=== PATIENT | female | born 1950 | race Caucasian/White ===

== ENCOUNTER 2022-03-27 13:38 | Outpatient (CLI) | payer MEDICARE, SELFPAY ==
--- OUTSIDE RECORDS SUMMARY | 2021-12-30 09:36 | XMS_ITS | Continuity of Care Document ---
:1950 Author Care Team Providers Name Role Phone MD Astrid [place] Attending Physician MD Astrid [place] Primary Care Physician Health Concerns Concerns Review problems and other documentation throughout for Health Concerns. Dictation done with voice recognition, a nd as a result, wrong word or [id number] substitution may have occ urred. Please consider this when interpreting information in this chart. 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, 2 kids, dog Portillo Additional Data Assigned Sex Female Problems Active Problems Medical Problem Onset Date Status Ocular migraine Active Depression Active Osteoporosis July 29, 2019 Active Recurrent cold sores Active Dyslipidemia Active Diverticulitis 2020 Resolved Pancreatic cyst Active BPV (benign positional vertigo) Active Essential tremor Active History of right knee joint August 14, 2017 Active replacement Hx of bilateral cataract 2018 Active extraction hx endoscopic ultrasound February, Active Hx of colonoscopy February 28, 2021 Active Medications Medication Status Dose Units Route Directions Qty Days Start End Ins tructions Date Date Alendronate Active 70 MG PO Every 7 18 December Sodium Days 14, (Fosamax) 70 2021 Mg TAB 12:27p m Cholecalcifero Active 1000 UNIT OR Twice A Day l (Vitamin D3) 1,000 Unit CAP Escitalopram Active 10 MG PO Daily November Oxalate , (Lexapro) 10 2021 Mg TAB 1:28pm Simvastatin Active 40 MG PO Bedtime November 29, 2021 1:29pm Sumatriptan Active 50 MG PO As Needed 9 ONE TAB AT Succinate ONSET OF (Imitrex) 50 HEADACH E, MAY Mg TAB REPEAT Q2H PRN, MAX 200 MG/24 HRS Valacyclovir Active 1 GRAMS PO Daily as 30 Hcl (Valtrex) needed 1 Gm TAB Escitalopram Discontin 15 MG PO Daily October Pat ient to Oxalate ued , take 3 tabs 2021 2021 by mouth 1:28pm 1:28pm daily Escitalopram Discontin 15 MG PO Daily October Oxalate ued , 2021 2:26pm 1:28pm Escitalopram Discontin 15 MG PO Daily October Oxalate ued , 2021 10:45a 2:26pm m Escitalopram Discontin 15 MG PO Daily October Oxalate ued 2021 10:45a m Simvastatin Discontin 40 MG PO Bedtime October ued , 2021 1:28pm 1:29pm Simvastatin Discontin 20 MG PO Bedtime October ued , 2021 2:26pm 1:28pm Simvastatin Discontin 20 MG PO Bedtime October ued , 2021 10:45a 2:26pm m Simvastatin Discontin 20 MG PO Bedtime 05 November ued 2021 10:45a m Immunizations Immunization Event Date Not Given Dose Ict Business Development Manager Lot Vac cine Reason Number Number Informatio n Statement (VIS) Deta il COVID-19 Moderna November 252021 COVID-19 Pfizer July 302020 COVID-19 Pfizer August 102020 COVID-19 Pfizer March 112020 Herpes Zoster August 172010 Influenza May 092020 Prevnar Adult April 232017 Pneumovax Adult September 222016 Shingrix April 092019 Shingrix June 092019 Tdap September 14 (adolescent/adul 2020 t) Procedures Procedure Date Performed Status Future Lab Clinic November 29, 2021 completed DXA BONE DENSITY AXIAL December 14, 2021 completed Bone densitometry December 14, 2021 completed Relevant Diagnostic Tests and/or Laboratory Data Diagnostic Imaging Reports Report Dictated Date/Time Dictated By Status December 14, 2021 2:19pm [place] [address] ~DEPARTMENT OF DI AGNOSTIC IMAGING~ Patient: TANISHA BELCHER MR #: [id number] : 1950 Age: 71 Sex: F Ordering MD: Demetria [place] Rm/Bed: Loc: RAD Report #: [id number] Si gned DATE: 12/14/2021 Technique: DXA Bone Densitometry perform ed on [employer] System.?? *Comparison exams done prior to 12/2019 w ere performed on different unit, [employer]. Indication:??postmenopausal; screening f or osteoporosis; ? Clinical Information Provided by Patient : Has used the following medications: Vitamin D, Calcium Patient maximum height was 65 Menopause Age 55 Drinks caffeinated beverages ?? Onset of menses at age 12 Number of children 2 ? Bone Density:??Exam date 12/14/2021 Region BMD (g/cm2) T-score Z-score Classification AP Spine(L1-L4) 1.019 -0.3 ??2.1 Normal Femoral Neck(Left) 0.559 -2.6 -0.6 Osteoporosis Total Hip(Left) 0.797 -1.2 ??0.5 Osteopenia Femoral Neck(Right) 0.545 -2.7 -0.7 Osteoporosis Total Hip(Right) 0.723 -1.8 -0.1 Osteopenia Femoral Neck Mean 0.552 -2.7 -0.7 Osteoporosis Total Hip Mean 0.760 -1.5 0.2 Osteopenia World Health Organization criteria for B MD impression classify patients as Normal (T-score at or above -1.0), Osteo penia (T-score between -1.0 and -2.5), or Osteoporosis (T-score at or below -2. 5). ? 10-year Fracture Risk: FRAX not reported because:?? Some T-scor e for Spine Total or Hip Total or Femoral Neck at or below -2.5 ? Impression:??The patient has osteoporosi s, based on the Right Femoral Neck T- score. ?? Discussion:??INCREASED RISK OF FRACTURE. BONE DENSITY IS UNDESIRABLY LOW AT ONE OR MORE SKELETAL SITES, CONSISTENT WITH POSTMENOPAUSAL OSTEOPOROSIS. This patient's lowest T-score meets the World Health Organization's (WHO) criteria for osteoporosis at one or more sites (T-score -2.5 or below).?? In untreated patients, the risk of osteo porotic fracture increases approximately two-fold for each 1.0 SD decrease in T-s core.?? Low bone density is not the only risk factor for fracture; also consider factors such as patient's age, frailty or poor health, risk of falling, risk of injury, previous osteoporotic fracture, family history of osteoporosis, cigarett e smoking, low body weight, etc.?? Not everyone with low bone mineral densi ty has osteoporosis; osteomalacia and other metabolic bone disorders should al so be considered. Patients who have o steoporosis should be evaluated for spec [facility] diseases and conditions (secondary causes) that may cause or contribute to bone loss.?? The [place] Association of Clinical End ocrinologists (AACE) and National Osteoporosis Foundation (NOF) recommend pharmacologic intervention for all postmenopausal women whose T-score is in this range. The patient should follow a healthful lifestyle (good nutrition with adequate calcium and vitamin D, and appropriate weight-bearing exercise). ?? Follow-Up:??Consider a repeat BMD and Ve rtebral Fracture Assessment (VFA) exam in 2 years or sooner if medically necessary , to reassess this patient's status. ?? Reported by:??Ari Farias MD on 12/14 2:19:00 PM. <<Signatur e on File>> Dictated By: ARI FARAIS MD Signed By: ARI FARIAS MD Vital Signs Vital Reading Result Reference Range Collection Date/ Time Height 65.500 [in_i] November 29, 2021 1 :05pm Height 166.37 cm November 29, 2021 1 :05pm Weight 147.00 [lb_av] November 29, 2021 1 :05pm Weight 66.801105 kg November 29, 2021 1 :05pm Body Temperature 98.5 [degF] November 29, 2021 1:05pm Body Temperature 36.94 Tracy November 29, 2021 1:05pm BP Systolic 124 mm[Hg] November 29, 2021 1 :05pm BP Diastolic 62 mm[Hg] November 29, 2021 1 :05pm Heart Rate 56 /min November 29, 2021 1 :05pm Respiratory rate 18 /min November 29, 2021 1:05pm Body surface area 1.75 m2 November 29, 2021 1:05pm BMI (Body Mass Index) 24.2 kg/m2 November 29, 2021 1:05pm Insurance Providers Guarantor Tanisha Belcher Address [address] [address] Contact Info. Home Phone: Payer Policy Id Coverage Id Subscriber's Subscriber Id Effective E xpiration Name Date Date [facility] [id number] Tanisha Belcher July Medicare L 2021 Complete Encounters Encounter Location(s) Arrival/Admit Date Discharge/Depart Date Provider(s) Registered [place] [facility] 14[facility] Demetria Le MD Registered [facility] November 29, 2021 [facility] 1:00pm Demetria Le MD Office [facility] [place] [facility] 29[facility] Demetria Le MD Recent Diagnosis Onset Date Encounter for Medicare annual wellness exam Essential tremor BPV (benign positional vertigo) Osteoporosis Dyslipidemia Depression Ocular migraine Well woman exam without gynecological exam Screening for breast cancer Recurrent cold sores Pancreatic cyst Assessments 1. Well-woman exam without pelvic exam due for mammogram which was ordered up-to-date on colonoscopy up-to-date on vaccinations2. Osteoporosis never been on medication we will do DEXA scan continue with 1200 mg of calcium and vitamin- D daily as well as weight-bearing exercise which she does in the former gardening and walking3. Depression well controlled we did decrease Lexapro to 10 mg daily I did renew this for 1 year follow-up in 1 year4. Pancreatic cyst, pair records patient needs gastroenterology follow-up and imaging once a year I have placed a referral to [facility] which she does prefer5. Ocular migraines infrequent use of Imitrex does not need refills6. Dyslipidemia well controlled did renew simvastatin for 1 year7. Recurrent cold sores uses Valtrex as needed does not need a refill8. Benign positional vertigo uses Tramaine maneuver as needed this is a longstanding occasional problem9. Essential tremors, was unable to tolerate medications, so on no medications chronic problem Medicare wellness visit done please see copy no sign of depression excessive alcohol use or cognitive decline do recommend continue current healthy lifestyle we will see her back for a physical and follow-up in 1 year earlier if any concerns. Pre vi sit labs for next year placed Plan of Treatment Instructions from visit on: 11/29/21 Please follow the provider's instructions as discussed during your visit. Instructions from visit on: 11/29/21 Please follow the providers instructions as discussed during your visit and follow preventative care plan. Future Tests Future scheduled test information is unavailable Pending Tests Pending diagnostic test information is unavailable Future Visits Future appointment information is unavailable Referrals to Other Providers Referral information is unavailable Future Procedures Procedure Name Scheduled Date BART Ramirezat Mammo Scrn Future Medications Future medication information is unavailable Patient Instructions Patient instructions are unavailable Goals Ambulatory Goals Reach or maintain optimal well being.
--- NOTE | 2022-03-27 13:40 | CRLHL7_ITS ---
For Patients: As a result of the Century Cures Act, medical imaging exams and procedure reports are released immediately into your electronic medical record. You may view this report before your referring provider. If you have questions, please contact your health care provider. BILATERAL SCREENING MAMMOGRAM WITH COMPUTER-AIDED DETECTION AND TOMOSYNTHESIS TECHNIQUE: CC and MLO views were obtained. These mammographic images have been obtained using full-field digital technique. These mammographic images were interpreted with the benefit of computer-aided detection. Breast Tomosynthesis was used in this interpretation. COMPARISON FILM: Images from [place] (outside). FINDINGS: The breasts are heterogeneously dense, which may obscure small masses IMPRESSION: There is no radiographic evidence for malignancy. ASSESSMENT: BI-RADS Category 1: Negative RECOMMENDATION: Routine screening mammogram in 1 year. A lay language report of this examination will be provided to the patient. Db Joyce M.D. Diagnostic Radiologist [email or web address] FRAN/Dictated by: Db Joyce MD @ 04/04/2022 8:58:00 AM (Electronically Signed)
== END 2022-03-27 13:39 | disposition home or self-care (01) ==
LOC: MAMMO 13:40
PROVIDERS: Visit Provider Family Medicine
DX: Z12.31 Encounter for screening mammogram for malignant neoplasm of breast (principal); R92.2 Inconclusive mammogram
CPT/HCPCS: 77063; 77067

== ENCOUNTER 2023-02-07 16:00 | Outpatient (RCR) | payer OTHER, SELFPAY ==
--- NOTE | 2023-01-05 09:40 | PT.OPEX ---
Please review and sign the attached physical therapy evaluation completed on 01/05/23. Thank you. PT [facility] Out[facility] Eval PT [facility] Outpatient Eval Start: 01/05/23 07:47 Freq: Status: Active Protocol: Document 01/05/23 07:48 TLQ (Rec: 01/05/23 09:34 TLQ [id number]) E-signed By Tiffany Araya DPT Physical Therapy Outpatient Evaluation Insurance Information Recert Due Date 04/05/23 Insurance Name Medicare B Insurance Information/Comments [employer] Medical Diagnosis Pain in left hip (M25.552) Treating Diagnosis Pain in left hip (M25.552) Muscle weakness (M62.81) Referring MD Demetria [place] MD Subjective Subjective Has been having hip pain on her left side on/off over the past year. Likes to garden and has noticed difficulty getting on/off the ground. Pain also worsens when she is carrying heavy objects, especially if greater than 20 lbs. Has a difficult time squatting. When her hip pain is present, notices it is worst when sitting or lying down. Finds some relief with Advil. Had a knee replacement on the right 5 years ago, also has a bunion on her right foot, both are stiff. Would like to work on strength and balance in physical therapy. Would like to eventually start going to [address] [place] [address]. PMHx: Depression, Bronchospasm , Osteoporosis, R TKA 2018 Pain Comments 0/10 at best 3-4/10 at worst Current Work Status Retired Preferred Name Tanisha Precautions Therapy Limitations/Systems Review Not Limited Objective Strength Core strength: 4- flexion, 4+ extension Lower extremity strength: Hip: flexion L 4, R 4+ extension L 4-, R 4+ abduction L 4, R 4+ adduction 4 B internal rotation L 4, R 4+ external rotation L 3+, R 4- Knee: flexion L 4-, R 4 extension 4+ B Ankle/foot: dorsiflexion 4+ B plantarflexion L 16 SLHR, R 25 SLHR Other/Pertinent Objective Hip ROM: WFL bilaterally, mild IR restriction on L Knee ROM: L 0-140 degrees, R 0 -124 degrees Joint mobility: mild hypomobility with posterior glide of L hip TTP: L piriformis Gait: mild Trendelenburg bilaterally 5xSTS 11 seconds with arms crossed, fair eccentric control Tandem stance: 30 seconds bilaterally SLS: L 29 seconds, R 16 seconds Special tests: VIVEK (-) LE distraction (-) no change in symptoms Supine to sit test (-) Assessment Assessment/Impression Patient is a 72 year old female who presents to physical therapy with primary complaint of intermittent left pain. Her primary goal for physical therapy is to improve her strength and balance. Over the past year she has had difficulty with transitions from sit to stand and from getting off the ground after gardening. Core and hip weakness present during today' s examination with manual muscle testing, lower extremity weakness more prevalent in the LLE. No major balance concerns at this time based on ability to maintain tandem stance for 30 seconds without LOB, expect sense of stability will improve as hip strength improves. In addition to her hip pain the patient also notes some stiffness in her right knee and right first ray, hallux valgus deformity present in first ray on the right, history of right TKA in 2018 but no ROM deficits noted during today's examination. Based on examination findings she expected to benefit from skilled interventions of manual therapy, therapeutic exercise, therapeutic activity , and neuromuscular re- education in order to meet her goals as outlined below. Primary Functional Limitations left hip pain, muscle weakness , transitions from floor, transitions to standing, squatting Plan of Care Rehabilitation Potential Good Physical Therapy Goals In 6-8 visits: - Patient will demonstrate floor to stand transition through half kneeling without external support for improved mobility needed while gardening. - Patient will demonstrate safe body mechanics while carrying 10# object to decrease risk of injury during lifting tasks. - Gross left hip strength will improve to 4+/5 for improved stability during stair navigation. - Patient will complete 5 squats over 2 consecutive visits without provocation of symptoms for improved functional strength. - Patient will adhere to HEP to continue strength training IND. Treatment Plan/Direct Interventions Gait Training,Manual Therapy, Neuromuscular Re-ed,Self-Care/ Home Management,Therapeutic Activities,Therapeutic Exercises Frequency/Duration 1x/week for 6-8 weeks Patient Will Be Discharged From Therapy Completion of LTG(s),Skills Plateau,Independent w/HEP, Independently Progressing Evaluation Billing Complexity Low Certification Information Initial Certification Date 01/05/23 Ending Certification Date 04/05/23 Provider Signature Shows Agreement With POC & Medical Necessity Physician Signature & Date Requested Please Sign/Date Here Physician Comment/Change : Physician NPI Number #
== END 2023-05-02 09:18 | disposition home or self-care (01) ==
PROVIDERS: PCP Family Medicine; Visit Provider Family Medicine
DX: M25.552 Pain in left hip (principal); M62.81 Muscle weakness (generalized); Z51.89 Encounter for other specified aftercare
CPT/HCPCS: 97110; 97140; 97161

== ENCOUNTER 2023-02-12 09:08 | Outpatient (CLI) | payer OTHER, SELFPAY ==
--- NOTE | 2023-02-12 09:15 | CRLHL7_ITS ---
For Patients: As a result of the Century Cures Act, medical imaging exams and procedure reports are released immediately into your electronic medical record. You may view this report before your referring provider. If you have questions, please contact your health care provider. INDICATION: Pancreatic cyst; followup. Comparison: None. TECHNIQUE: MRI of the abdomen without and with intravenous contrast; precontrast T1 and T2 weighted imaging; T2 haste imaging; diffusion weighted imaging; in and out of phase imaging; postcontrast imaging; 20 cc of Dotarem contrast was injected. FINDINGS: Extrahepatic common bile duct measures 9.1 mm in diameter without any evidence of choledocholithiasis. Gallbladder is unremarkable. No evidence of intrahepatic biliary duct dilatation. Dilated pancreatic duct measuring 7.4 mm in diameter. A 7 mm cystic lesion tail of the pancreas. 5 mm cystic lesion in the tail of the pancreas. 9 mm cystic lesion in the uncinate process of the pancreas. No focal hepatic or splenic pathology. No peripancreatic inflammatory changes. No adrenal pathology. Kidneys are unremarkable. IMPRESSION: 1. Multiple cystic lesions in the pancreas; rule out side branch IPMN. 2. Dilated pancreatic duct measuring 7.4 mm in diameter; rule out main duct IPMN. 3. Common bile duct measures 9 mm in diameter without any choledocholithiasis. 4. No other abnormalities are identified. 5. Followup MRCP and MRI of the abdomen in 12 months duration suggested and comparison with any available previous pancreatic imaging suggested. Dictated by Bernie Qureshi MD @ 02/20/2023 11:20:18 AM (Electronically Signed)
== END 2023-02-12 09:09 | disposition home or self-care (01) ==
LOC: MRI 09:11
PROVIDERS: PCP Family Medicine; Visit Provider Internal Medicine Gastroenterology
DX: K86.2 Cyst of pancreas (principal)
CPT/HCPCS: 74183; A9575

== ENCOUNTER 2023-02-14 10:10 | Outpatient (CLI) | payer OTHER, SELFPAY | END 2023-02-14 10:11 | disposition home or self-care (01) | LOC: AMB 02-15 08:59 | PROVIDERS: PCP Family Medicine; Visit Provider Family Medicine | DX: I10 Essential (primary) hypertension (principal) ==

== ENCOUNTER 2023-02-14 10:10 | Outpatient (CLI) | payer OTHER, SELFPAY | END 2023-02-14 10:11 | disposition home or self-care (01) | LOC: AMB 02-19 09:11 | PROVIDERS: PCP Family Medicine; Visit Provider Family Medicine | DX: R51.9 Headache, unspecified (principal) | CPT/HCPCS: A0425; A0427 ==

== ENCOUNTER 2023-02-14 10:41 | Emergency (ER) | payer OTHER, SELFPAY ==
[2023-02-14] VITALS (16 sets, daily range): BP systolic 167–198; BP diastolic 85–104; PULSE 63–80; RESP 16; TEMP 36.9; O2SAT 94–99; BMI 24.6
--- NOTE | 2023-02-14 | CRLHL7_ITS ---
For Patients: As a result of the Century Cures Act, medical imaging exams and procedure reports are released immediately into your electronic medical record. You may view this report before your referring provider. If you have questions, please contact your health care provider. Indication: Possible stroke Technique: Volumetric multidetector CT images of the head were obtained without the administration of low osmolar intravenous contrast. Comparison: None available Findings: There is no intra-axial or extra-axial fluid collection. There is no mass effect or midline shift. There is age-related cortical atrophy with mild sulcal widening and ex vacuo dilatation of the lateral ventricles. There are chronic small vessel disease changes in the subcortical and periventricular white matter without lost joshi-white differentiation. The orbits and their contents are grossly within normal limits. The bony calvarium is grossly intact. The paranasal sinuses are clear. The mastoid air cells are well aerated. Impression: 1. Age-related changes of the brain without acute intracranial abnormality. Findings were reported to Dr. Fuentes at 11:02 a.m. February 14, 2023 Please note that all CT scans at this facility use dose modulation, iterative reconstruction, and/or weight-based dosing when appropriate to reduce radiation dose to as low as reasonably achievable. Dictated by Louie Youssef MD @ 02/14/2023 11:09:51 AM (Electronically Signed)
--- NOTE | 2023-02-14 | CRLHL7_ITS ---
For Patients: As a result of the Century Cures Act, medical imaging exams and procedure reports are released immediately into your electronic medical record. You may view this report before your referring provider. If you have questions, please contact your health care provider. DATE: 02/14/2023 CLINICAL HISTORY: Patient with focal neurological deficits. TECHNIQUE: Standard helical CT image acquisition through the intracranial circulation following intravenous administration of contrast material with bolus tracking. 2D and 3D MIP images for post-processing were performed and interpreted on an independent workstation and 3D images were permanently archived. COMPARISON: CT same day. FINDINGS: There is no cerebral aneurysm or large vessel occlusion. The right internal carotid artery is normal. The right middle cerebral artery and its branches are normal. The right anterior cerebral artery and its branches are normal. The left internal carotid artery is normal. The left middle cerebral artery and its branches are normal. The left anterior cerebral artery and its branches are normal. The anterior communicating artery is well visualized and appears normal. The right vertebral artery and PICA are normal. The left vertebral artery and PICA are normal. The left vertebral artery is dominant. The basilar artery is patent and appears normal. The right posterior cerebral artery is normal. The left posterior cerebral artery is normal. The visualized venous structures are patent. IMPRESSION: Normal CT angiogram of the head without intracranial aneurysm or other neurovascular abnormality. Please note that all CT scans at this facility use dose modulation, iterative reconstruction, and/or weight-based dosing when appropriate to reduce radiation dose to as low as reasonably achievable. Dictated by Amadou Merida MD @ 02/14/2023 9:18:01 PM (Electronically Signed)
--- NOTE | 2023-02-14 | CRLHL7_ITS ---
For Patients: As a result of the Century Cures Act, medical imaging exams and procedure reports are released immediately into your electronic medical record. You may view this report before your referring provider. If you have questions, please contact your health care provider. DATE: 02/14/2023 CLINICAL HISTORY: Patient with focal neurological deficits. TECHNIQUE: Standard helical CT image acquisition of the neck up to the skull base after bolus intravenous contrast enhancement. Multiplanar reconstructed images performed on a separate workstation. COMPARISON: CT same day. FINDINGS: The origins of the great vessels from the aortic arch are patent. The origin of the right vertebral artery is patent. The origin of the left vertebral artery is patent. The common carotid arteries are patent. There is no stenosis at the origin of the right internal carotid artery. There is plaque without stenosis at the origin of the left internal carotid artery. The rest of the cervical segments of the internal carotid arteries are patent up to the skull base. The left vertebral artery is dominant. The cervical segments of the vertebral arteries are patent up to the skull base. The visualized intracranial vasculature is unremarkable. The visualized lung apices are unremarkable. The thyroid gland is unremarkable. The soft tissues of the neck are unremarkable. There are degenerative changes in the cervical spine. IMPRESSION: Patent cervical vasculature. Please note that all CT scans at this facility use dose modulation, iterative reconstruction, and/or weight-based dosing when appropriate to reduce radiation dose to as low as reasonably achievable. Dictated by Amadou Merida MD @ 02/14/2023 9:15:48 PM (Electronically Signed)
--- NOTE | 2023-02-14 11:00 | ED.GENADULT ---
HPI - General Adult General Chief complaint: Neuro Symptoms/Altered Deficit Stated complaint: CVA Time Seen by Provider: 02/14/23 10:44 History of Present Illness HPI narrative: Patient is a 72-year-old female has history of ocular migraines and benign positional vertigo, essential tremor, presents with diminished word-finding ability this morning, and some questionable right-sided weakness. This seems to be improved at this time on arrival to the ED. She was brought in by stroke code by EMS. She has no history of AFib, is not on any anticoagulants. She has not had a stroke in the past. She does have ocular migraines as mention and gets some word-finding problems with these, although she does not have a headache now. She was met in the hallway, she had a examination that included normal facial examination, no facial asymmetry, tongue protrudes midline, mouth opens, patient follows commands. Patient has no neck stiffness she has no pronator drift, no weakness in the upper lower extremity. Patient reports that showed she was last well about 9:00 a.m., she was texting with her daughter at that time her daughter is here with her. I consulted Stroke Neurology promptly and Dr. kenney is interviewing the patient now Related Data Home Medications Medication Instructions Recorded Confirmed cholecalciferol (vitamin D3) 50 50 mcg PO QDAY 07/25/22 12/07/22 mcg (2,000 unit) capsule Previous Rx's Medication Instructions Recorded albuterol sulfate 90 mcg/actuation 2 puff inhalation Q6H PRN 11/28/22 aerosol inhaler shortness of breath or wheezing #8.5 grams sumatriptan succinate 50 mg tablet 50 mg PO QDAY PRN migraine 11/28/22 headache #10 tabs escitalopram oxalate 20 mg tablet 20 mg PO QDAY #90 tabs 12/07/22 (Lexapro) simvastatin 40 mg tablet 40 mg PO QHS #90 tabs 12/07/22 valacyclovir 1 gram tablet 2,000 mg (2 x 1 gram) PO QDAY PRN 12/07/22 cold sores #24 tabs Allergies Allergy/AdvReac Type Severity Reaction Status Date / Time Penicillins Allergy Unknown Verified 12/07/22 11:11 Sulfa (Sulfonamide Allergy Unknown Verified 12/07/22 11:11 Antibiotics) Review of Systems Status of ROS: Reports: unobtainable due to medical condition PFSH [facility] Medical History Recurrent herpes labialis ?B00.1 - Herpesviral vesicular dermatitis (ICD-10) Osteoporosis (07/29/19) ?M81.0 - Age-related osteoporosis without current pathological fracture (ICD-10) Ocular migraine ?G43.109 - Migraine with aura, not intractable, without status migrainosus (ICD-10) Dyslipidemia ?E78.5 - Hyperlipidemia, unspecified (ICD-10) Diverticulitis (2020) ?K57.92 - Diverticulitis of intestine, part unspecified, without perforation or abscess without bleeding (ICD-10) Cyst of pancreas ?K86.2 - Cyst of pancreas (ICD-10) Depression ?F32.A - Depression, unspecified (ICD-10) Surgical History History of right knee joint replacement (08/14/17) ?Z96.651 - Presence of right artificial knee joint (ICD-10) History of colonoscopy (02/28/21) ?Z98.890 - Other specified postprocedural states (ICD-10) History of bilateral cataract extraction (2018) ?Z98.41 - Cataract extraction status, right eye (ICD-10) ?Z98.42 - Cataract extraction status, left eye (ICD-10) Family History Mother Breast cancer Depression Father Myocardial infarction Social History Narrative: , retired from [employer], 2 kids, dog Portillo exercise involving walking- 2-3/week, 2M nonsmoker social drinker- 1-2/week Smoking Status: Never smoker How often do you have a drink containing alcohol: monthly or less How often do you have six or more drinks on one occasion: Never AUDIT-C Alcohol total score: 1 Non-prescribed substance use: denies use Little interest or pleasure in doing things: not at all Feeling down, depressed, or hopeless: not at all Exam Narrative: Exam Narrative: Objective: Patient's vital signs show elevated blood pressure, she has no facial asymmetry, she has difficulty finding words and speaking, but she is able to speak single words. She has no obvious facial asymmetry Neck is supple Chest clear heart rhythm regular heart murmur Abdomen benign Extremities without edema neurologic is grossly nonfocal she is able to move her legs arm she has no pronator drift she has good grasp strength bilaterally in her upper extremities she has good normal flexion extension of her feet bilaterally and normal sensation in the periphery. Const: Vital Signs, click to edit/add: Vital Signs - 24 hr 02/14/23 10:48 02/14/23 11:07 02/14/23 11:07 Temperature 98.4 F Pulse Rate 78 Pulse Rate [Left R adial] 75 Pulse Rate [Pulse Oximeter] 80 Respiratory Rate 16 Blood Pressure 193/86 H Blood Pressure [Ri ght Upper Arm] 198/104 H Pulse Oximetry 99 98 [facility] 02/14/23 11:08 02/14/23 11:15 02/14/23 11:16 Temperature Pulse Rate 80 76 75 Pulse Rate [Left R adial] Pulse Rate [Pulse Oximeter] Respiratory Rate Blood Pressure 182/88 H Blood Pressure [Ri ght Upper Arm] Pulse Oximetry 98 97 98 [facility] 02/14/23 11:17 02/14/23 11:30 02/14/23 11:31 Temperature Pulse Rate 75 74 79 Pulse Rate [Left R adial] Pulse Rate [Pulse Oximeter] Respiratory Rate Blood Pressure 178/85 H Blood Pressure [Ri ght Upper Arm] Pulse Oximetry 97 97 98 [facility] 02/14/23 11:45 02/14/23 11:46 02/14/23 12:33 Temperature Pulse Rate 74 75 72 Pulse Rate [Left R adial] Pulse Rate [Pulse Oximeter] Respiratory Rate Blood Pressure 167/85 H Blood Pressure [Ri ght Upper Arm] Pulse Oximetry 96 94 96 [facility] 02/14/23 12:35 02/14/23 12:36 02/14/23 12:45 Temperature Pulse Rate 67 72 66 Pulse Rate [Left R adial] Pulse Rate [Pulse Oximeter] Respiratory Rate Blood Pressure 171/101 H Blood Pressure [Ri ght Upper Arm] Pulse Oximetry 95 96 96 [facility] 02/14/23 12:47 02/14/23 12:48 Temperature Pulse Rate 66 63 Pulse Rate [Left R adial] Pulse Rate [Pulse Oximeter] Respiratory Rate Blood Pressure 172/88 H Blood Pressure [Ri ght Upper Arm] Pulse Oximetry 94 95 Oxygen Delivery Me thod Course Vital Signs Vital signs: Initial Vital Signs Temperature 98.4 F 02/14/23 10:48 Temperature Source Temporal Artery Scan 02/14/23 10:48 Pulse Rate 80 02/14/23 10:48 Respiratory Rate 16 02/14/23 10:48 Blood Pressure 198/104 H 02/14/23 10:48 Blood Pressure Mean 135 H 02/14/23 10:48 Blood Pressure Position Supine 02/14/23 10:48 Pulse Oximetry 99 02/14/23 10:48 Oxygen Delivery Method Room Air 02/14/23 10:48 Vital Signs Temperature 98.4 F 02/14/23 10:48 Pulse Rate 80 02/14/23 10:48 Respiratory Rate 16 02/14/23 10:48 Blood Pressure 198/104 H 02/14/23 10:48 Pulse Oximetry 99 02/14/23 10:48 Oxygen Delivery Method Room Air 02/14/23 10:48 Temperature 98.4 F 02/14/23 10:48 Pulse Rate 63 02/14/23 12:48 Respiratory Rate 16 02/14/23 10:48 Blood Pressure 172/88 H 02/14/23 12:47 Pulse Oximetry 95 02/14/23 12:48 Oxygen Delivery Method Room Air 02/14/23 10:48 Medical Decision Making MDM Narrative Medical decision making narrative: [age] white female with history of mild ocular migraines, BPV and tremor, presents with word-finding inability. No headache present. She has had some word-finding inability with migraine headaches in the past. At this point that she does have a headache in the seems a little different than baseline per her daughter. The patient has improved slightly with some right-sided strength it has returned and seems symmetric. Paramedics thought that she might have been a little weak on the right in the home. She is on no anticoagulants. Her blood pressure is elevated. Dr. Vergara is a consulting with the patient this time via the tele stroke protocol. Her initial CT scan is unremarkable by my read, and her CTA is pending. Dr. Chicas he felt that if her strength continues and her CTs look negative we can do full load Plavix 300 and full dose aspirin. Patient may need admission for telemetry echocardiogram and stroke assessment. Addendum 11:[address] kenney interviewed the patient and felt this is more likely an ocular migraine with aura. She did see some flashing lights although did have a headache, it has lasted longer and been a little bit more aphasia or dysphagia than typical but she does get some of this with a headache. He recommended an aspirin, a MRI scan as soon as possible to rule out stroke, and then disposition planning. Patient will get an MRI without contrast of the head to rule out stroke, and then disposition per Dr. kenney recommendation. addendum 1:00 p.m.: The patient has an MRI that is looked at by Dr. Vergara as unremarkable. He feels this is more related to a migraine. He recommended magnesium and a dose of 406 100 mg as a supplement daily as some people tolerate this and it helps her migraines. The patient declines any migraine treatment at this time she would like to go home. Light activity recommended, fluids, continue home medications. I would avoid Imitrex today but may use at starting tomorrow. Follow-up with Dr. Her Jamison next few days may want to consult with a neurologist regarding her ocular migraines as well. Her labs look reassuring. Lab Data Labs: Lab Results 02/14/23 Range/Units 11:10 WBC 6.40 (4.50-11.00) K/uL RBC 4.78 (4.00-5.20) m/uL Hgb 14.2 (12.0-16.0) gm/dL Hct 42.6 (33.0-51.0) % MCV 89 (80-100) fL MCH 30 (26-34) pg MCHC 33 (32-36) gm/dL RDW Coeff of Carlene 13.2 (11.5-15.5) % Plt Count 221 (140-440) K/uL Neut % (Auto) 50.8 (42.0-72.0) % Lymph % (Auto) 34.7 (20-44) % [place] % (Auto) 7.0 (0.0-11.0) % Eos % (Auto) 6.4 (0.0-7.0) % Baso % (Auto) 0.9 (0.0-3.0) % Neut # (Auto) 3.25 (1.7-7.0) K/uL Lymph # (Auto) 2.22 (0.90-2.90) K/uL [place] # (Auto) 0.40 (0.00-0.90) K/UL Eos # (Auto) 0.41 (0.00-0.50) K/uL Baso # (Auto) 0.06 (0.00-0.30) K/uL Abs Immat Gran (auto) 0.01 (0.00-0.30) K/uL Imm/Tot Granulo (auto) 0.2 % Sodium 133 L (135-149) mmol/L Potassium 3.1 L (3.6-5.1) mmol/L Chloride 101 (96-114) mmol/L Carbon Dioxide 20 (20-32) mmol/L BUN 20 (7-30) mg/dL Creatinine 0.7 (0.5-1.5) mg/dL Estimated Creat Clear 44.41 Estimated GFR 91 ml/min Glucose 115 (60-115) mg/dL Calcium 9.2 (8.4-10.6) mg/dL C-Reactive Protein < 0.5 L (0.5-1.0) mg/dL Critical Care Time Critical Care Time Total Critical Care Time in Minutes: 120 Discharge Plan Discharge Clinical Impression: Benign paroxysmal positional vertigo, Ocular migraine Patient Disposition: Home w/ Parent or Adult Condition: Improved Additional Instructions: Recommend light activity, Dr. kenney recommended a supplemental dose of magnesium daily for ocular migraine. Recommend follow-up with Her work in the next few days. Push fluids, continue home medications. Return as needed. Activity Level: Light activity Discharge Diet: Regular Prescriptions: No Action albuterol sulfate 90 mcg/actuation HFA aerosol inhaler 2 puff inhalation Q6H PRN (Reason: shortness of breath or wheezing) Qty: 8.5 0RF escitalopram oxalate [Lexapro] 20 mg tablet 20 mg PO QDAY Qty: 90 4RF simvastatin 40 mg tablet 40 mg PO QHS Qty: 90 4RF valacyclovir 1 gram tablet 2,000 mg PO QDAY PRN (Reason: cold sores) Qty: 24 0RF Rx Instructions: take 2 tab po immediately, repeat 2 tab po in 12h , use as needed for cold sores cholecalciferol (vitamin D3) 50 mcg (2,000 unit) capsule 50 mcg PO QDAY sumatriptan succinate 50 mg tablet 50 mg PO QDAY PRN (Reason: migraine headache) Qty: 10 0RF Follow Up/Referrals: Demetria Hudson MD [Primary Care Provider] - Stand Alone Forms: Scaffold Info Instructions
--- NOTE | 2023-02-14 11:20 | CRLHL7_ITS ---
For Patients: As a result of the Century Cures Act, medical imaging exams and procedure reports are released immediately into your electronic medical record. You may view this report before your referring provider. If you have questions, please contact your health care provider. INDICATION: Stroke-like symptoms. TECHNIQUE: Brain MRI without contrast. The following sequences were obtained: Sagittal T1 weighted sequence. DWI and ADC mapping sequences. Axial FLAIR and PADMINI T2 weighted sequences. Susceptibility or GRE sequence. COMPARISON: Head CT from 02/14/2023. FINDINGS: No evidence of acute ischemia. No evidence of acute or chronic intracranial blood products. Multiple FLAIR hyperintensities scattered within the supratentorial white matter, typical for microvascular ischemic change. No mass effect or herniation. No hydrocephalus or extra-axial collections. The pituitary gland, parasellar structures and optic chiasm are normal. Posterior fossa is normal. All the major intracranial vascular structures demonstrate normal flow-related signal. The orbital contents are normal. No calvarial or skull base marrow replacing process. No obstructive sinus disease. No extracranial soft tissue findings. IMPRESSION: 1. No acute ischemia or other acute intracranial pathology. 2. Mild chronic microvascular ischemic changes. Dictated by Raul Woods MD @ 02/14/2023 1:10:45 PM (Electronically Signed)
[2023-02-14] MEDS: ASPIRIN 81 MG TAB.CHEW 324 MG PO (11:27)
[2023-02-14 12:07] LABS: Basophils Absolute Auto 0.06 K/uL (0.00-0.30); Basophils Percent Auto 0.9 % (0.0-3.0); Eosinophils Absolute Auto 0.41 K/uL (0.00-0.50); Eosinophils Percent Auto 6.4 % (0.0-7.0); Hematocrit 42.6 % (33.0-51.0); Hemoglobin* 14.2 gm/dL (12.0-16.0); Immature Granulocytes Abs Auto 0.01 K/uL (0.00-0.30); Immature Granulocytes Pct Auto 0.2 %; Lymphocytes Absolute Auto 2.22 K/uL (0.90-2.90); Lymphocytes Percent Auto 34.7 % (20-44); Mean Corpuscular HGB Conc 33 gm/dL (32-36); Mean Corpuscular Hemoglobin 30 pg (26-34); Mean Corpuscular Volume 89 fL (80-100); Neutrophils Absolute Auto 3.25 K/uL (1.7-7.0); Neutrophils Percent Auto 50.8 % (42.0-72.0); Platelet Count* 221 K/uL (140-440); RDW Coefficient of Variation % 13.2 % (11.5-15.5); Red Blood Count 4.78 m/uL (4.00-5.20)
[2023-02-14 12:09] LABS: Chloride* 101 mmol/L (96-114); Potassium* 3.1 mmol/L (3.6-5.1); Sodium* 133 mmol/L (135-149)
[2023-02-14 12:12] LABS: Blood Urea Nitrogen* 20 mg/dL (7-30); Carbon Dioxide* 20 mmol/L (20-32); Creatinine* 0.7 mg/dL (0.5-1.5); Est. Creatinine Clearance* 44.41; Estimated Glomerular Filt Rate 91 ml/min
[2023-02-14 12:13] LABS: Calcium* 9.2 mg/dL (8.4-10.6); Glucose* 115 mg/dL (60-115)
[2023-02-14 12:17] LABS: C Reactive Protein* < 0.5 mg/dL (0.5-1.0)
[2023-02-14 12:19] LABS: Slide Review Reflex No
[2023-02-14] MEDS: POTASSIUM BICARB 25 MEQ EFFERVESCENT TAB PO (12:45)
== END 2023-02-14 13:17 | disposition home or self-care (01) ==
LOC: ED 12:59
PROVIDERS: Emergency Provider Family Medicine; PCP Family Medicine
DX: H81.10 Benign paroxysmal vertigo, unspecified ear (principal); G43.B0 Ophthalmoplegic migraine, not intractable
CPT/HCPCS: 36415; 70450; 70496; 70498; 70551; 80048; 85025; 86140; 93005; 99285; 99291; 99292; A9270; Q9967

== ENCOUNTER 2023-02-23 09:32 | Outpatient (CLI) | payer OTHER, SELFPAY | END 2023-02-23 09:33 | disposition home or self-care (01) | LOC: NFLDREF 09:33 | PROVIDERS: PCP Family Medicine; Visit Provider Family Medicine | DX: E87.6 Hypokalemia (principal) | CPT/HCPCS: 80048 ==

== ENCOUNTER 2023-05-23 12:16 | Outpatient (CLI) | payer OTHER, SELFPAY ==
--- NOTE | 2023-05-23 13:00 | CRLHL7_ITS ---
For Patients: As a result of the Century Cures Act, medical imaging exams and procedure reports are released immediately into your electronic medical record. You may view this report before your referring provider. If you have questions, please contact your health care provider. Indication: LOWER ABD PAIN, MAINLY ON THE LEFT X 1 WEEK. HX OF DIVERTICULITIS Technique: CT Abdomen/Pelvis 69CC ISOVUE 370 Please note that all CT scans at this facility use dose modulation, iterative reconstruction, and/or weight-based dosing when appropriate to reduce radiation dose to as low as reasonably achievable. Comparison: MRI 02/12/2023 Findings: Mild atelectasis noted within both lung bases. No pleural effusion. No free intraperitoneal air. No intrahepatic mass. No splenic lesion. Vascular calcifications. Adrenal glands normal. No solid renal mass or stone. No hydronephrosis. No gallbladder wall thickening. Possible faint densities within the dependent gallbladder. Dilated common bile duct and pancreatic duct again noted. Segmental inflammatory changes involving sigmoid colon extending over a length of 5 cm. Intramural abscess formation noted measuring 1.3 cm. Adjacent inflammatory changes in the pelvic fat. No disseminated free air. No bowel obstruction. Bladder normal. Uterine fibroids. Normal ovaries. No suspicious lymph nodes. No hernia. Degenerative changes lumbar spine. No fracture. Impression: Similar appearance of the pancreas with small cystic lesions present and dilated common bile duct/pancreatic duct. MRI/MRCP follow-up in February 2024 recommended, as before. Moderately severe acute sigmoid diverticulitis with intramural abscess formation which is not amenable to percutaneous drainage. Please note that all CT scans at this facility use dose modulation, iterative reconstruction, and/or weight-based dosing when appropriate to reduce radiation dose to as low as reasonably achievable. Dictated by Db Joyce MD @ 05/24/2023 10:17:46 AM (Electronically Signed)
[2023-05-23 13:04] LABS: Creatinine* 0.8 mg/dL (0.5-1.5); Estimated Glomerular Filt Rate 77 ml/min
== END 2023-05-23 12:17 | disposition home or self-care (01) ==
LOC: CT 12:18
PROVIDERS: PCP Family Medicine; Visit Provider Internal Medicine Gastroenterology
DX: R10.30 Lower abdominal pain, unspecified (principal); K86.2 Cyst of pancreas; K57.32 Diverticulitis of large intestine without perforation or abscess without bleeding
CPT/HCPCS: 36415; 74177; 82565; 85025; Q9967

== ENCOUNTER 2023-06-08 15:26 | Outpatient (CLI) | payer OTHER, SELFPAY ==
--- NOTE | 2023-06-08 16:00 | CRLHL7_ITS ---
For Patients: As a result of the Century Cures Act, medical imaging exams and procedure reports are released immediately into your electronic medical record. You may view this report before your referring provider. If you have questions, please contact your health care provider. INDICATION: abdominal pain TECHNIQUE: CT abdomen and pelvis acquired with 71 cc Isovue 370 IV contrast. COMPARISON: Dating back to February 2023. FINDINGS: Lower chest: Subsegmental atelectasis. ABDOMEN: Liver: Normal enhancement. Subcentimeter hypodensities are too small to characterize. Gallbladder and biliary: Normal gallbladder without radiopaque stone. Stable prominence/dilatation of the common bile duct. Spleen: Normal size and enhancement. Pancreas: Normal enhancement without peripancreatic inflammatory changes or ductal dilatation. Adrenal glands: Normal adrenal glands. Kidneys and ureters: 1 millimeter nonobstructing left-sided renal stone. No hydroureteronephrosis. GI tract: Small hiatal hernia. Normal caliber small and large bowel loops. Normal appendix. Colonic diverticulosis without diverticulitis. Vascular structures: Normal caliber aorta with atherosclerotic calcifications. Lymph nodes: No lymphadenopathy in the abdomen or pelvis by size criteria. Peritoneum: No free air, free fluid, or focal drainable fluid collection. PELVIS: Genitourinary system: Urinary bladder is relatively decompressed. Age-appropriate uterus with likely uterine fibroid. SKELETAL STRUCTURES AND SOFT TISSUES: Multilevel lumbar spondylosis with disc bulges causing at least effacement of the anterior thecal sac. IMPRESSION: 1. No discrete acute abdominal or pelvic process. No obstruction. No hydroureteronephrosis. Colonic diverticulosis resolved previously visualized diverticulitis. Normal appendix. 2. Likely uterine fibroid. 3. No imaging findings to explain the reported clinical symptoms. 4. 1 millimeter nonobstructing left-sided renal stone. Please note that all CT scans at this facility use dose modulation, iterative reconstruction, and/or weight-based dosing when appropriate to reduce radiation dose to as low as reasonably achievable. Dictated by Db Rowe MD @ 06/08/2023 5:09:06 PM (Electronically Signed)
== END 2023-06-08 15:27 | disposition home or self-care (01) ==
PROVIDERS: PCP Family Medicine; Visit Provider Internal Medicine Gastroenterology
DX: R10.9 Unspecified abdominal pain (principal); N20.0 Calculus of kidney
CPT/HCPCS: 74177; Q9967

== ENCOUNTER 2023-06-12 13:53 | Outpatient (REF) | payer OTHER, SELFPAY ==
[2023-06-12 14:30] LABS: Basophils Absolute Auto 0.06 K/uL (0.00-0.30); Basophils Percent Auto 1.2 % (0.0-3.0); Eosinophils Percent Auto 7.4 % (0.0-7.0); Hematocrit 41.7 % (33.0-51.0); Hemoglobin* 13.3 gm/dL (12.0-16.0); Lymphocytes Absolute Auto 1.47 K/uL (0.90-2.90); Lymphocytes Percent Auto 29.3 % (20-44); Mean Corpuscular HGB Conc 32 gm/dL (32-36); Mean Corpuscular Hemoglobin 30 pg (26-34); Mean Corpuscular Volume 93 fL (80-100); Monocytes Percent Auto 7.8 % (0.0-11.0); Neutrophils Absolute Auto 2.72 K/uL (1.7-7.0); Neutrophils Percent Auto 54.3 % (42.0-72.0); Platelet Count* 242 K/uL (140-440); RDW Coefficient of Variation % 14.5 % (11.5-15.5); Red Blood Count 4.51 m/uL (4.00-5.20); White Blood Count* 5.01 K/uL (4.50-11.00)
[2023-06-12 14:33] LABS: Slide Review Reflex No
== END 2023-06-12 13:54 | disposition home or self-care (01) ==
LOC: NPINS 13:53
PROVIDERS: PCP Family Medicine; Visit Provider Internal Medicine Gastroenterology
DX: R10.9 Unspecified abdominal pain (principal)
CPT/HCPCS: 85025

== ENCOUNTER 2023-09-04 14:41 | Outpatient (CLI) | payer OTHER, SELFPAY ==
--- NOTE | 2023-09-04 15:00 | MM_ITS ---
Patient: SHERRELL BELCHER Facility:?[facility] Patient ID:?[id number] Site Patient ID:?[id number]. Site :?[id number] Study:?XRay-Breast 3D W/CAD-09/04/2023 3:01:52 PM Ordering Physician:Demetria Peterson Final Report: BILATERAL SCREENING MAMMOGRAM WITH COMPUTER-AIDED DETECTION AND TOMOSYNTHESIS TECHNIQUE: CC and MLO views were obtained. These mammographic images have been obtained using full-field digital technique. These mammographic images were interpreted with the benefit of computer-aided detection. Breast Tomosynthesis was used in this interpretation. COMPARISON FILM: 03/27/22, 10/07/20. FINDINGS: The breasts are heterogeneously dense, which may obscure small masses. IMPRESSION: There is no radiographic evidence for malignancy. ASSESSMENT: BI-RADS Category 2: Benign RECOMMENDATION: Routine screening mammogram in 1 year. A lay language report of this examination will be provided to the patient. Db Joyce M.D. Diagnostic Radiologist [email or web address] PANKAJ/sp R& Transcribed: 2:07 p.m. SP/Dictated by: Db Joyce MD @ 09/05/2023 10:52:00 AM Signed by:?Db Joyce MD @09/05/2023 2:26:32 PM (Electronic Signature)
== END 2023-09-04 14:42 | disposition home or self-care (01) ==
LOC: MAMMO 14:42
PROVIDERS: PCP Family Medicine; Visit Provider Family Medicine
DX: Z12.31 Encounter for screening mammogram for malignant neoplasm of breast (principal); R92.2 Inconclusive mammogram
CPT/HCPCS: 77063; 77067

== ENCOUNTER 2023-12-14 10:26 | Outpatient (CLI) | payer OTHER, SELFPAY ==
--- OUTSIDE RECORDS SUMMARY | 2024-01-01 11:48 | XMS_ITS | Encounter Summary ---
Author Organization [facility] Address [address] [place] [id number] Care Team Providers Care Medical Technologist Name Role Phone Unavailable Primary Care Provider Unavailabl e Encounter Details Date Type Department Care Team (Latest Contact Info) Description 11/08/2023 Orders Only Division of Gastroenterology in [place], [place] [address] [place] [address] Jesus Agustin M.B.B.S. [address] [place] [address] Cyst Pancreas (Primary Dx) Social History Tobacco Use Types Packs/Day Years Used Date Smoking Tobacco: Never Passive Smoke Exposure: Yes Smokeless Tobacco: Never Comments:My father smoked wh en i was growin up Alcohol Use Standard Drinks/Week Comments Yes 1 (1 standard drink = 0.6 oz pur e alcohol) [facility] Utilities Answer Date Recorded In the past 12 months has e [employer], gas, oil, or water foodjunky threatened to shut off services in your home? No 09/19/2023 Exercise Vital Sign Answer Date Recorde d On average, how many days pe r week do you engage in moderate to strenuous exercise (like a brisk walk)? 4 days 09/19/2023 On average, how many minutes do you engage in exercise at this level? 30 min 09/19/2023 Hunger Vital Sign Answer Date Recorded Within the past 12 months, y ou worried that your food would run out before you got the money to buy more. Never true 09/19/19 24 Within the past 12 months, t he food you bought just didn't last and you didn't have money to get more. Never true 09/19/2023 PRAPARE - Transportation Answer Date Re corded In the past 12 months, has l ack of transportation kept you from medical appointments or from getting medications? No 09/06 In the past 12 months, has l ack of transportation kept you from meetings, work, or from getting things needed for daily living? No 09/19/2023 Nutrition Answer Date Recorded Nutrition: EVOO Fat Source Unknown 09/18 On average, how many serving s of fruits and vegetables do you eat per day (serving size is equal to 1 cup or approximately the size of a tennis ball)? 5 or more 09/19/2023 Dental Answer Date Recorded Dental: Regular Dentist No 09/19/19 Employment Answer Date Recorded Employment status Retired 09/19/2023 Housing Stability Answer Date Recorded What is your living situation today? I have a [facility] place to live 09/19/2023 Sex and Gender Information Value Date Recorded Sex Assigned at Female 09/19/2023 8:25 PM CDT Gender Identity Female 09/19/2023 8:25 PM CDT Sexual Orientation Straight 09/19/2023 8: 25 PM CDT documented as of this encounter Plan of Treatment Not on file documented as of this encounter Results * Interpretation of Outside CT Abdomen and or Pelvis (11/08/2023 8:57 AM CDT) Anatomical Region Laterality Modality Abdomen, Pelvis, Abdominal R ST LOS, Abdominal ARZ LOS, Abdominal FLA LOS, Other N/A Computed Tomography Impressions 11/09/2023 11:29 AM CDT Mild intra and extrahepatic bile duct dilatation and mild dilatation of the pancreatic duct in the head and body. No obstructing mass or other cause for ductal dilatation is appreciated. Narrative 11/09/2023 11:29 AM CDT EXAM: ??INTERPRETATION OF OUTSIDE CT ABDOMEN AND OR PELVIS outside CT abdomen and pelvis with IV contrast enhancement 06/08/2023. COMPARISON: ??Outside CT abdomen pelvis with IV contrast enhancement 05/23/2023. FINDINGS: ??Mildly dilated intrahepatic and extrahepatic bile ducts. Common duct measures about 15 mm is not significantly changed since the oldest available exam of 11/07/2020. Mild prominence of the pancreatic duct in the head and body. 6 mm cystic lesion in the uncinate process likely an IPMN (2/52). Pancreas is otherwise normal without evidence of any worrisome or obstructing lesions. Colonic diverticula. Findings of diverticulitis have resolved since 05/23/2023. Uterine fibroids. Atherosclerotic arterial calcifications. Accessory spleen. Small esophageal hiatal hernia. Procedure Note Gurinder Gerard M.D. - 11/09/2023 EXAM: INTERPRETATION OF OUTSIDE CT ABDOMEN AND OR PELVIS outside CTabdomen and pelvis with IV contrast enhancement 06/08/2023. COMPARISON: Outside CT abdomen pelvis with IV contrast [id number]/[id number]. FINDINGS: Mildly dilated intrahepatic and extrahepatic bile ducts. Commonduct measures about 15 mm is not significantly changed since the oldestavailable exam of 11/07/2020. Mild prominence of the pancreatic duct in thehead and body. 6 mm cystic lesion in the uncinate process likely an IPMN (2/52). Pancreas is otherwisenormal without evidence of any worrisome or obstructing lesions. Colonic diverticula. Findings of diverticulitis have resolved since05/23/2023. Uterine fibroids. Atherosclerotic arterial calcifications.Accessory spleen. Small esophageal hiatal hernia. IMPRESSION: Mild intra and extrahepatic bile duct dilatation and mild dilatation ofthe pancreatic duct in the head and body. No obstructing mass or othercause for ductal dilatation is appreciated. Jesus Martel IMG CT PROCEDURE S documented in this encounter Visit Diagnoses Diagnosis Cyst Pancreas- Primary Cyst Pancreas documented in this encounter
--- OUTSIDE RECORDS SUMMARY | 2024-01-01 11:48 | XMS_ITS ---
Author Organization [facility] Address [address] [place] [address] Care Team Providers Care [employer] Officer Name Role Phone Unavailable Unavailable Unavailable Surgery Details Not on file Complications Check Surgery Details section. Procedure Estimated Blood Loss Check Surgery Details section. Procedure Findings Check Surgery Details section. Procedure Specimens Taken Check Surgery Details section.
--- OUTSIDE RECORDS SUMMARY | 2024-01-01 11:48 | XMS_ITS | Encounter Summary ---
Author Organization [facility] Address [address] [place] [address] Care Team Providers Care Assistant City Attorney Name Role Phone Unavailable Primary Care Provider Unavailabl e Reason for Referral * Outpatient (Routine) - Closed Specialty Diagnoses / Procedures Referred By Contac t Referred To Contact Diagnoses Cyst Pancreas Procedures ERCP Jesus Agustin M.B.B.S. [address] [place] [phone] [facility] Referral ID Status Reason Start Date Expiration Date Visits Re quested Visits Authorized [id number] Closed 09/24/2023 09/23/2024 1 1 * Outpatient (Routine) - Closed Specialty Diagnoses / Procedures Referred By Contac t Referred To Contact Diagnoses Cyst Pancreas Procedures Endoscopic ultrasound (EUS) Jesus Agustin M.B.B.S. [address] [place] [phone] [facility] Referral ID Status Reason Start Date Expiration Date Visits Re quested Visits Authorized [id number] Closed 09/24/2023 09/23/2024 1 1 Reason for Visit * Outpatient (Routine) - Closed Specialty Diagnoses / Procedures Referred By Contac t Referred To Contact Diagnoses Cyst Pancreas Procedures ERCP Jesus Agustin M.B.B.S. [address] [place] [phone] [facility] Referral ID Status Reason Start Date Expiration Date Visits Re quested Visits Authorized [id number] Closed 09/24/2023 09/23/2024 1 1 Encounter Details Date Type Department Care Team (Latest Contact Info) Description 10/15/2023 12:02 PM CDT - 10/15/2023 12:19 PM CDT Hospital Encounter Division of Gastroenterology in [place], [place] [address] [place] [phone] Jesus Agustin M.B.B.S. [address] [place] [phone] Rhina Watts M.D. [address] [place] [phone] Cyst Pancreas Discharge Disposition: Home or Self Care Social History Tobacco Use Types Packs/Day Years Used Date Smoking Tobacco: Never Passive Smoke Exposure: Yes Smokeless Tobacco: Never Comments:My father smoked wh en i was growin up Alcohol Use Standard Drinks/Week Comments Yes 1 (1 standard drink = 0.6 oz pur e alcohol) [facility] Utilities Answer Date Recorded In the past 12 months has th e electric, gas, oil, or water [employer] threatened to shut off services in your [...] your living situation today? I have a [facility] place to live 09/19/2023 Sex and Gender Information Value Date Recorded Sex Assigned at Female 09/19/2023 8:25 PM CDT Gender Identity Female 09/19/2023 8:25 PM CDT Sexual Orientation Straight 09/19/2023 8: 25 PM CDT documented as of this encounter Discharge Instructions * Attachments The following attachments cannot be sent through Care Everywhere. * About Your Endoscopic Ultrasound (Danish) documented in this encounter Medications at Time of Discharge Medication Sig Dispensed Refills Start Date End Date albuterol 90 mcg/actuation inhaler Inhale 2 puffs 4 (four) times a day as needed. cholecalciferol (VITAMIN D3) 50 mcg (2,000 Unit) capsule Take 50 mcg by mouth. 07/25/2022 escitalopram (LEXAPRO) 20 mg tablet Take 20 mg by mouth daily. hydrocortisone (ANUSOL-HC) 25 mg suppository Apply 1 Suppository rectally twice a day. 07/19/2017 magnesium 200 mg tablet Take 200 mg by mouth every morning before breakfast. melatonin (MELADOX) 3 mg ER tablet Take 4 mg by mouth at bedtime. simvastatin (ZOCOR) 40 mg tablet Take 40 mg by mouth at bedtime. triamcinolone (KENALOG) 0.1 % cream Apply 1 application to affected area twice a day. 04/08/2018 valACYclovir (VALTREX) 500 mg tablet Take 3 Tabs by mouth once every day as needed (for cold sore). vitamin D3/vitamin K2, MK4, (K2 PLUS D3 ORAL) Take 500 mg by mouth daily. documented as of this encounter Plan of Treatment Scheduled Orders Name Type Priority Associated Diagnoses Orde r Schedule ERCP GI Routine Cyst Pancreas Once for 1 Occurrences starting 10/15/19 24 until 10/15/2023 documented as of this encounter Procedures Procedure Name Priority Date/Time Associated Diagnosis Comments UPPER EUS Routine 10/15/2023 11:19 AM CDT Cyst Pancreas ENDOSCOPIC ULTRASOUND (EUS) Routine 10/15/2023 11:19 AM CDT Cyst Pancreas documented in this encounter Results * Upper EUS (10/15/2023 11:19 AM CDT) 10/15/2023 11:1 9 AM CDT Impressions [facility] - 10/15/2023 5:12 PM CDT Post-op Diagnoses: ? - Multiple anechoic cysts distributed throughout the pancreatic neck, ? body, and tail with the largest measuring 6 x 6mm. Endosonographic ? appearance suggestive of multifocal BD-IPMN without high risk stigmata. ? - There was no sign of significant pathology in the main pancreatic ? duct. The duct was prominent in the head measuring 4.5mm but tapered ? smoothly to the body and tail. No intraductal debris or mucin. ? - Hyperechoic pancreatic parenchyma with diffuse hyperechoic strands and ? foci. ? - Moderate common bile duct dilation without evidence of intraductal ? pathology, including stones or stricture. ? - Endoscopically and endosonographically unremarkable ampulla. Given ? normal biliary findings, ERCP not performed. ? - Fullness in the left adrenal gland with possible sub-centimeter ? adenoma. ? - No lymphadenopathy. No ascites. Narrative [facility] - 10/15/2023 5:12 PM CDT [facility] GI Patient Name: Tanisha John Date of : 1950 Age: 73 Procedure Date: 10/15/2023 Procedure: ? Upper EUS Providers: ? Rhina Watts MD, Sergey Ma MD ? (Fellow) Referring Provider: ?Tahmina Cuellar Pre-op Diagnoses: ?Dilated pancreatic duct on CT scan, Pancreatic cyst ? on CT scan, Obstruction of bile duct on CT, ? Intraductal papillary mucinous neoplasm (IPMN) Recommendation: ? - Discharge patient to home. ? - Resume previous diet. ? - Return to referring physician. Findings: ? ENDOSONOGRAPHIC FINDING: : ? Several anechoic lesions suggestive of cysts were identified in the ? pancreatic body, pancreatic tail and pancreatic neck. 5 separate cysts ? with the largest cyst visualized in the pancreatic tail measuring 6 x ? 6mm. Other cysts dispersed through the pancreas included multiple in the ? body measuring 5x4mm, 6x4mm, 4x4mm and a small 3mm cyst in the neck. All ? cysts were thin walled without internal debris. There was no associated ? mass. ? There was no sign of significant endosonographic abnormality in the main ? pancreatic duct. The pancreatic duct measured up to 4.2 mm in diameter ? in the preampullary region and was very thin caliber and regular in ? contour in the body and tail (0.7mm body, 0.5mm tail). ? The pancreatic parenchyma was hyperechoic with hyperechoic strands and ? foci noted throughout. ? Diffuse common bile duct dilation up to 9mm otherwise unremarkable. No ? intraductal stones, debris, or suggestion of stricture. ? There was no sign of significant endosonographic abnormality in the ? gallbladder. ? There was no sign of significant endoscopic or endosonographic ? abnormality in the ampulla. ? There was no sign of significant endosonographic abnormality in the ? visualized portion of the liver. ? Largely unremarkable left adrenal gland with 9mm isoechoic area which ? may be suggestive of adenoma. ? No lymphadenopathy seen. Procedural Details: ? The patient was seen, evaluated, history reviewed, airway and heart-lung ? exams were performed by licensed provider and were satisfactory for ? planned level of sedation care. ? The risks, benefits and alternatives for the procedure and sedation were ? discussed and informed consent was obtained. A procedural pause was ? conducted in the presence of assisting personnel to verify the correct ? patient identity and procedure to be performed. Throughout the ? procedure, the patient's blood pressure, pulse, and oxygen saturations ? were monitored continuously. The Endosonoscope was introduced through ? the mouth, and advanced to the second part of duodenum. The upper EUS ? was accomplished without difficulty. The patient tolerated the procedure ? well. Complications: ? None. Estimated Blood Loss: ?Minimal. Attending Participation: I was present and participated during the entire ? procedure, including non-nguyen portions. Rhina Watts MD 10/15/2023 2:52:16 PM This report has been signed electronically. Number of Addenda: 0 Note Initiated On: 10/15/2023 11:19 AM Jesus Martel GI PROCEDURE ORD ERABLES Performing Organization Address City/State/ZIP Co [place] Phone Number [facility] documented in this encounter Visit Diagnoses Diagnosis Cyst Pancreas documented in this encounter
--- OUTSIDE RECORDS SUMMARY | 2024-01-01 11:48 | XMS_ITS | Encounter Summary ---
Author Organization [facility] Address [address] [place] [address] Care Team Providers Care Beam Dyer Operator Name Role Phone Unavailable Primary Care Provider Unavailabl e Reason for Referral * Outpatient (Routine) - Closed Specialty Diagnoses / Procedures Referred By Derian t Referred To Contact Diagnoses Cyst Pancreas Procedures ERCP Jesus Agustin M.B.B.S. [address] [place] [phone] [facility] Referral ID Status Reason Start Date Expiration Date Visits Re quested Visits Authorized [id number] Closed 09/24/2023 09/23/2024 1 1 * Outpatient (Routine) - Closed Specialty Diagnoses / Procedures Referred By Derian camarillo Referred To Contact Diagnoses Cyst Pancreas Procedures Endoscopic ultrasound (EUS) Jesus Agustin M.B.B.S. [address] [place] [phone] [facility] Referral ID Status Reason Start Date Expiration Date Visits Re quested Visits Authorized [id number] Closed 09/24/2023 09/23/2024 1 1 Reason for Visit * Appointment Request (Routine) - Closed Specialty Diagnoses / Procedures Referred By Contact Referred To Contact Gastroenterology and Hepatology Diagnoses Cyst Pancreas Referral ID Status Reason Start Date Expiration Date Visits Re quested Visits Authorized [id number] Closed 05/22/2023 05/21/2024 1 1 Encounter Details Date Type Department Care Team (Latest Contact Info) Description 09/24/2023 1:20 PM CDT Comprehensive Visit Division of Gastroenterology in [place], [place] [address] [place] [address] Jesus Agustin M.B.BDianeS. [address] [place] [address] Cyst Pancreas Social History Tobacco Use Types Packs/Day Years Used Date Smoking Tobacco: Never Passive Smoke Exposure: Yes Smokeless Tobacco: Never Comments:My father smoked wh en i was growin up Alcohol Use Standard Drinks/Week Comments Yes 1 (1 standard drink = 0.6 oz pur e alcohol) [facility] Utilities Answer Date Recorded In the past 12 months has th e electric, gas, oil, or water company threatened to shut off services in your [...] money to buy more. Never true 09/19/19 Within the past 12 months, t he [...] your living situation today? I have a [facility] place to live 09/19/2023 Sex and Gender Information Value Date Recorded Sex Assigned at Female 09/19/2023 8:25 PM CDT Gender Identity Female 09/19/2023 8:25 PM CDT Sexual Orientation Straight 09/19/2023 8: 25 PM CDT documented as of this encounter Last Filed Vital Signs Vital Sign Reading Time Taken Comments Blood Pressure 160/69 09/24/2023 12:58 PM CDT Pulse 55 09/24/2023 12:58 PM CDT Temperature - - Respiratory Rate - - Oxygen Saturation - - Inhaled Oxygen Concentration - - Weight 63.1 kg (139 lb 1.8 oz) 09/24/2023 12:58 PM CDT Height 172 cm (5' 7.72) 09/24/2023 12:58 PM CDT Body Mass Index 21.33 09/24/2023 12:58 PM CDT documented in this encounter Progress Notes * Jesus Agustin M.B.B.S. - 09/24/2023 1:20 PM CDT SUBJECTIVE Patient ID: Tanisha John is a 73 y.o. 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 Her major symptoms She was first diagnosed to have pancreatic lesions in 2020. This was when she visited and ER in [place] for abdominal pain. She was diagnosed with diverticulitis however an incidental 1.1 cm cystic lesion of the pancreatic tail was noted. This was reported to be consistent with an IPMN. This was followed up with an MRI MRCP in January 2022. This showed a 7 mm cyst in the pancreatic head with no suspicious features. Bile duct was dilated to 1.5 cm. More recently she has been following up at [place] [facility]. She had an EUS in March 2023 which showed 3 cystic lesions in the pancreatic head body and tail. These were reported to be consistent with branch duct IPMN. The pancreatic duct was dilated to 5 mm. Duodenal biopsies were taken and these showed ampullary mucosa with mild nonspecific reactive changes MRI MRCP at the same time in February 2023 showed multiple cystic lesion in the pancreas less than 1 cm in size. Dilated PD to 7.4 mm. CBD was dilated to 9 mm. No fh of pancreatic cancer, no pancreatitis She had C diff in 2022 after a course of antibiotics for C diff. She has recovered well from now. She has changed her diet and now exercise. She gave up sugar and processed foods. She has increased the fibre. She has a total of 4 episodes of diverticulitis (first episode 2017). She is fine between episodes. She has always had underlying IBS-D. She took a lot of imodium previously but not recently. OBJECTIVE Vitals reviewed. Constitutional Appearance: Normal appearance. HENT Head: Normocephalic. Mouth/Throat: Mouth: Mucous membranes are moist. Cardiovascular Rate and Rhythm: Normal rate. Pulmonary Effort: Pulmonary effort is normal. No respiratory distress. Abdominal General: There is no distension. Palpations: Abdomen is soft. Tenderness: There is no abdominal tenderness. There is no guarding. Musculoskeletal General: Normal range of motion. Neurological Mental Status: She is alert. Imaging CT 2020 1. Findings compatible with acute sigmoid diverticulitis. No diverticular abscess visualized. As there can be overlap in the imaging appearance of diverticulitis and colonic carcinoma, correlation with recent colonoscopy or consideration of colonoscopy after completion of therapy may be helpful. 2. Incidental note of a 1.1 cm cystic lesion at the pancreatic tail. While nonspecific, this could potentially represent a sidebranch IPMN. Per ACR incidental findings guidelines, imaging follow-up is recommended in 2 years. 3. The extrahepatic bile duct is dilated measuring up to 15 mm. An obstructing lesion is not visualized by CT. If clinically indicated, MRCP could be helpul for further evaluation. If performed with MRCP/pancreas protocol, the above described pancreatic lesion could also be evaluated at the same time. February 2023 Multiple cystic lesions in pancreas, 7mm tail, 5mm in the tail, 9mm in the uncinate process Dilated PD 7.4mm CBD 9mm EUS March 2023 Impressions/Post-Op Diagnosis: - Both the major and minor ampullas were prominent. Biopsies of the major ampulla were taken. There was no sign of significant echosonographic findings of the ampullas. - There was no sign of significant pathology in the common bile duct. - There was no evidence of significant pathology in the left lobe of the liver and in the right lobe of the liver. - Three cystic lesions were seen in the pancreatic head, pancreatic body and pancreatic tail. Tissue has not been obtained. However, the endosonographic appearance is consistent with a branched intraductal papillary mucinous neoplasm. - The pancreatic duct side branches had a prominently branched endosonographic appearance in the body of the pancreas. - The pancreatic duct had a dilated endosonographic appearance in the pancreatic head, genu of the pancreas and body of the pancreas. The pancreatic duct measured up to 5 mm in diameter. Recommendation: - Await path results. - Perform magnetic resonance imaging (MRI) with gadolinium in 6 months. Diagnosis A) DUODENUM, AMPULLA, BIOPSY: 1. Ampullary mucosa with mild nonspecific reactive changes 2. Negative for dysplasia and malignancy MRI january 2022 1. 7 mm cyst is noted within the pancreatic head. No suspicious features. No abnormal enhancement or nodularity. Recommend follow-up as recommended below. 2. Common bile duct is dilated measuring up to 1.5 cm. No obstructing stone or mass identified. No intrahepatic biliary ductal dilation. Gallbladder within normal limits. ASSESSMENT / PLAN Pancreas cystic lesions Dilated CBD and PD Recurrent diverticulitis This is a very pleasant 73-year-old lady who is coming in from the [facility] for evaluation of a pancreas cyst. This has been worked up locally with MRI and endoscopic ultrasound and this referral is essentially for both biliary and pancreatic duct dilation. Her last EUS was performed 6 months ago and showed a pancreatic duct up to 5 mm along with 3 cystic lesions in the pancreatic head body and tail. These were not sampled. Ampulla was examined and biopsied and this did not show any pathology. Last MRI was in February 2023 when it showed 3 cystic lesions all less than 10 mm along with pancreatic duct dilation reported up to 7 mm. Considering a dilated pancreatic duct is a worrisome feature, we suggest that she have an EUS. We will also order an ERCP along with the EUS in case she has abnormal liver tests or if a biliary or ampullary pathology is noted on endoscopic ultrasound. If theseare normal then ERCP will not be needed. Regarding history of diverticulitis, she has undergone a recent colonoscopy locally and this was normal. She will continue follow up locally. Diagnoses and all orders for this visit: Cyst Pancreas - Endoscopic ultrasound (EUS); Future - ERCP; Future - Comprehensive Metabolic Panel; Future - Carbohydrate Antigen 19-9 (CA 19-9); Future - CBC with Differential, Blood; Future * Stevan Bates M.D. - 09/24/2023 1:20 PM CDT Outpatient Consultation Date of Consultation: 09/24/2023 Referring Physician: No ref. provider found Primary Care Physician: No primary care provider on file. This is a supervisory note for Tahmina Cuellar. I have reviewed the available records, interviewed and examined the patient. I agree with the chief complaint, history of present illness, past medical and surgical history, medications, physical examination, and impression/plan as outlined in Tahmina Cuellar's note dated today. Chief Complaint/Reason for Consult: Cyst Pancreas [K86.2] History of Present Illness: Ms. John is a very pleasant 73 y.o. female. She has a history of recurrent colonic diverticulitis. During abdominal imaging for diverticulitis she was identified to have cystic lesions in the pancreas. This has been followed with surveillance imaging over time. MRI in 2021 indicated a 7 mm cystin the pancreatic head. The common bile duct was noted to be dilated measuring 15 mm. No obstructing stone was identified. More recently in March 2023 she underwent EUS. Interestingly the bile duct on EUS was measured at 7 mm, 3 unilocular pancreatic cysts were identified in the pancreatic headwith the largest measuring 6 mm. The pancreatic duct was measured 4 mm in the head 5 mm in the neckand 2 mm in the body. No solid pancreatic mass was identified. The ampulla was biopsied with no evidence of neoplasm. There is no mention of any features of main duct IPMN or chronic pancreatitis. The encounter diagnosis was Cyst Pancreas. Assessment/Plan: #1 Pancreatic cystic lesion with dilated bile duct and pancreatic duct Ms. John is a very pleasant 73 y.o. female who presents for evaluation and management of Cyst Pancreas [K86.2]. The combination of a dilated bile duct and pancreatic duct warrants careful evaluation. EUS examination performed about 6 months ago did not show any clear evidence of advanced neoplasia. I think it would be reasonable to consider surveillance examination with EUS at this time to exclude any worrisome interval change. Specifically we are looking for any evidence of chronic pancreatitis, ampullary mass or main duct IPMN. We will also check hepatic function panel. We will set up the EUS procedure to accommodate an ERCP if needed. However if the liver tests are normal and no concerning distal bile duct or ampullary mass/stricture is noted on EUS we will not proceed with ERCP. On the other hand if there is concern for a distal bile duct stricture ERCP with biliary brush cytology and biopsy may be indicated. She will follow-up with Dr. Agustin after the procedure to review results and determine next steps. She verbalized understanding the plan and was in agreement. Multiple questions answered. documented in this encounter Plan of Treatment Scheduled Orders Name Type Priority Associated Diagnoses Orde r Schedule ERCP GI Routine Cyst Pancreas Expected: 09/24/2023, Expires: documented as of this encounter Results * (ABNORMAL) CBC with Differential, Blood (09/24/2023 2:54 PM CDT) Hemoglobin 14.3 11.6 - 15.0 g/dL 09/24/2023 3:32 PM CDT DTL Hematocrit 43.4 35.5 - 44.9 % 09/24/2023 3:32 PM CDT DTL Erythrocytes 4.71 3.92 - 5.13 x10(12)/L 09/24/2023 3:32 PM CDT DTL MCV 92.1 78.2 - 97.9 fL 09/24/2023 3:32 PM CDT DTL RBC Distrib Width 14.1 12.2 - 16.1 % 09/24/2023 3:32 PM CDT DTL Platelet Count 215 157 - 371 x10(9)/L 09/24/2023 3:32 PM CDT DTL Leukocytes 6.8 3.4 - 9.6 x10(9)/L 09/24/2023 3:32 PM CDT DTL Neutrophils 3.21 1.56 - 6.45 x10(9)/L 09/24/2023 3:32 PM CDT DHPM Lymphocytes 2.22 0.95 - 3.07 x10(9)/L 09/24/2023 3:32 PM CDT DTL Monocytes 0.46 0.26 - 0.81 x10(9)/L 09/24/2023 3:32 PM CDT DTL Eosinophils 0.82(H) 0.03 - 0.48 x10(9)/L 09/24/2023 3:32 PM CDT DTL Basophils 0.12(H) 0.01 - 0.08 x10(9)/L 09/24/2023 3:32 PM CDT DTL Blood (Blood, Venous) 09/24/2023 2:54 PM CDT 09/24/2023 3:17 PM CDT Jesus Martel LAB BLOOD ADD-ON [facility] [address] [place] [address], [facility] DTL [facility] [address] [place] [address] [facility] [address] [place] [address] * Carbohydrate Antigen 19-9 (CA 19-9) (09/24/2023 2:54 PM CDT) [facility] Carbohydrate Ag 19-9, S 16 <35 U/mL 09/24/2023 9:14 PM CDT [facility] Comment: ----ADDITIONAL INFORMATION---- The testing method is an immunoenzymatic assay manufactured by [employer] and performed on the [employer] DxI 800. ? Values obtained with different assay methods or kits may be different and cannot be used interchangeably. ? Test results cannot be interpreted as absolute evidence for the presence or absence of malignant disease. Blood (Blood, Venous) 09/24/2023 2:54 PM CDT 09/24/2023 8:22 PM CDT Jesus Matrel LAB BLOOD ADD-ON [facility] [address] [place] [address] [facility] [address] [place] [address] * Comprehensive Metabolic Panel (09/24/2023 2:54 PM CDT) [facility] Potassium, S 4.8 3.6 - 5.2 mmol/L 09/24/2023 3:51 PM CDT DTL Sodium, S 141 135 - 145 mmol/L 09/24/2023 3:51 PM CDT DTL Chloride, S 103 98 - 107 mmol/L 09/24/2023 3:51 PM CDT DTL Bicarbonate, S 28 22 - 29 mmol/L 09/24/2023 3:51 PM CDT DTL Anion Gap 10 7 - 15 09/24/2023 3:51 PM CDT DTL BUN (Blood Urea Nitrogen), S 18 6 - 21 mg/dL 09/24/2023 3:51 PM CDT DTL Creatinine 0.89 0.59 - 1.04 mg/dL 09/24/2023 3:51 PM CDT DTL Estimated GFR (eGFR) 68 >=60 mL/min/BS A 09/24/2023 3:51 PM CDT DTL Comment: Estimated GFR calculated using the 2020 CKD_EPI creatinine equation. Calcium, Total, S 9.8 8.8 - 10.2 mg/dL 09/24/2023 3:51 PM CDT DTL Glucose, S 92 70 - 140 mg/dL 09/24/2023 3:51 PM CDT DTL Protein, Total, S 7.1 6.3 - 7.9 g/dL 09/24/2023 3:51 PM CDT DTL Albumin, S 4.6 3.5 - 5.0 g/dL 09/24/2023 3:51 PM CDT DTL Aspartate Aminotransferase (AST), S 20 8 - 43 U/L 09/24/2023 3:51 PM CDT DTL Alkaline Phosphatase, S 81 35 - 104 U/L 09/24/2023 4:04 PM CDT DTL Alanine Aminotransferase (ALT), S 22 7 - 45 U/L 09/24/2023 3:51 PM CDT DTL Bilirubin, Total, S 0.4 0.0 - 1.2 mg/dL 09/24/2023 3:51 PM CDT DTL Blood (Blood, Venous) 09/24/2023 2:54 PM CDT 09/24/2023 3:29 PM CDT Jesus Martel LAB BLOOD ADD-ON [facility] [address] [place] [address], [facility] [address] [place] [address] documented in this encounter Visit Diagnoses Diagnosis Cyst Pancreas documented in this encounter
--- OUTSIDE RECORDS SUMMARY | 2024-01-01 11:48 | XMS_ITS | Encounter Summary ---
Author Organization [facility] Address [address] [place] [address] Care Team Providers Care Information Tech Name Role Phone Unavailable Primary Care Provider Unavailabl e Encounter Details Date Type Department Care Team (Latest Contact Info) Description 09/24/2023 2:30 PM CDT - 09/24/2023 11:59 PM CDT Hospital Encounter Department of Laboratory Medicine and Pathology, [facility], in [place], [place] [address] [place] [phone] Jesus Agustin M.B.B.S. [address] [place] [phone] Cyst Pancreas Discharge Disposition: Home or Self Care Social History Tobacco Use Types Packs/Day Years Used Date Smoking Tobacco: Never Passive Smoke Exposure: Yes Smokeless Tobacco: Never Comments:My father smoked wh en i was growin up Alcohol Use Standard Drinks/Week Comments Yes 1 (1 standard drink = 0.6 oz pur e alcohol) [facility] Utilities Answer Date Recorded In the past 12 months has e [employer], gas, oil, or water [employer] threatened to shut off services in your [...] Date Recorded Dental: Regular Dentist No 09/19/19 24 Employment Answer Date Recorded Employment status Retired 09/19/2023 Housing Stability Answer Date Recorded What is your living situation today? I have a [facility] place to live 09/19/2023 Sex and Gender Information Value Date Recorded Sex Assigned at Female 09/19/2023 8:25 PM CDT Gender Identity Female 09/19/2023 8:25 PM CDT Sexual Orientation Straight 09/19/2023 8: 25 PM CDT documented as of this encounter Medications at Time of Discharge [...] on file documented as of this encounter Procedures Procedure Name Priority Date/Time Associated Diagnosis Comments CARBOHYDRATE AG 19-9 (CA 19-9), S Routine 09/24/2023 2:54 PM CDT Cyst Pancreas CBC WITH DIFFERENTIAL, B Routine 09/24/2023 2:54 PM CDT Cyst Pancreas COMPREHENSIVE METABOLIC PANEL, S/P Routine 09/24/2023 2:54 PM CDT Cyst Pancreas documented in this encounter Results * (ABNORMAL) CBC with [...] PM CDT 09/24/2023 3:17 PM CDT Jesus KuhnS. LAB BLOOD ADD-ON Performing Organization Address City/[facility]/ZIP Co de Phone Number [facility] [address] [place] [address], [facility] DTL [facility] [address] [place] [address] DHPM [facility] [address] [place] [address] * Carbohydrate Antigen 19-9 (CA 19-9) (09/24/2023 2:54 PM CDT) Pathologist [facility] Carbohydrate Ag 19-9, S 16 <35 U/mL 09/24/2023 9:14 PM CDT [facility] Comment: ----ADDITIONAL INFORMATION---- The testing method is an immunoenzymatic assay manufactured by [employer] and performed on the [employer] DxI 800. ? Values obtained with different assay methods or kits may be different and cannot be used interchangeably. ? Test results cannot be interpreted as absolute evidence for the presence or absence of malignant disease. Blood (Blood, Venous) 09/24/2023 2:54 PM CDT 09/24/2023 8:22 PM CDT Jesus KuhnS. LAB BLOOD ADD-ON Performing Organization Address City/[facility]/ZIP Co de Phone Number [facility] [address] [place] [address] [facility] [address] [place] [address] * Comprehensive Metabolic Panel (09/24/2023 2:54 PM CDT) [facility] Potassium, S 4.8 3.6 - 5.2 mmol/L [...] BLOOD ADD-ON [facility] [address] [place] [address], [facility] DTL [facility] [address] [place] [address] documented in this encounter Visit Diagnoses Diagnosis Cyst Pancreas documented in this encounter
--- OUTSIDE RECORDS SUMMARY | 2024-01-01 11:48 | XMS_ITS | Encounter Summary ---
Author Organization [facility] Address [address] [place] [address] Care Team Providers Care Health Service Worker Name Role Phone Unavailable Primary Care Provider Unavailabl e Encounter Details Date Type Department Care Team (Latest Contact Info) Description 10/15/2023 12:50 PM CDT Anesthesia Event Division of Gastroenterology in [place], [place] [address] [place] [phone] Cale Chun APRN, CONCRETE VIBRATOR OPERATOR [address] [place] [phone] Tiera Purdy M.D. [address] [place] [phone] Anesthesia Record Procedure Summary Procedure Name Responsible Anesthesiologist Anesthesia Start Time Anesthesia Stop Time ENDOSCOPIC ULTRASOUND (EUS) Cale Chun APRN, JESUS 10/15/23 1250 10/15/23 1348 Events Date Time Event Comment 10/15/2023 1240 1250 An Start Machine/Equipme nt Checked Infection Precautions Followed Procedure/Site Verified NPO Status Verified Supine Standard ASA Monitors Applied 1256 An Induction 1300 An Intubation 1301 Turnover to Proceduralist 1308 Proc Start 1328 Proc Fin 1331 Turnover to ANE Staff 1340 Airway Removal Criteria Met 1340 Extubation/Airway Removed 1342 an stop data 1348 An End I completed my handoff to the receiving staff during which we 1. Identified the patient 2. Identified the responsible provider 3. Reviewed the pertinent medical history 4. Discussed the surgical course 5. Reviewed intra-op anesthesia management and issues during anesthesia 6. Set expectations for post-procedure period 7. Allowed opportunity for questions and acknowledgement of understanding. Meds Name Total fentanyl injection 50 mcg/mL 100 mcg lidocaine 2% (mg) injection 100 mg succinylcholine 20 mg/mL injection 100 m g ePHEDrine PF 5 mg/mL syringe injection 2 5 mg ondansetron 4 mg/2 mL injection 4 mg propofol 10 mg/mL infusion 268.18 mg propofol 10 mg/mL injection 160 mg dexAMETHasone (DECADRON) injection 4 mg/ mL 6 mg Lactated Ringers Free Drip 550 mL * Agents No agents on file. * Blood No blood administrations on file. Lines, Drains, and Airways Type Details Placement Removal Peripheral IV Placement Date: 03/01; Placement Time: 1235; Catheter Size: 22 G; Orientation: Right; Location: Hand; Site Prep: Chlorhexidine (Preferred); Technique: Anatomical landmarks; Inserted by: Kiera MEDINA; Removal Date: 10/15/23; Removal Time: 1511; Removal Reason: Patient discharged 10/15/23 1235 by Leticia Ko R.N. 10/15/23 1511 by Leticia Ko RDayan ETT Placement Date: 03/01; Placement Time: 1300 (created via procedure documentation); Mask Ventilation: Easy mask; Technique: Video laryngoscopy; Type: Standard ETT; Single Lumen Tube Size: 7 mm; Cuffed: Yes; Location: Oral; Grade View: Grade 1; Insertion Attempts: 1; Placement Verification: Bilateral breath sounds, Positive ETCO2, Symmetrical chest wall movement; Removal Date: 10/15/23; Removal Time: 1340 10/15/23 1300 by Cale Chun APRN, CRNA 10/15/23 1340 by Cale Chun APRN, CRNA documented in this encounter Social History Tobacco Use Types Packs/Day Years Used Date Smoking Tobacco: Never Passive Smoke Exposure: Yes Smokeless Tobacco: Never Comments:My father smoked wh en i was growin up Alcohol Use Standard Drinks/Week Comments Yes 1 (1 standard drink = 0.6 oz pur e alcohol) [facility] Utilities Answer Date Recorded In the past 12 months has [employer], gas, oil, or water [employer] threatened to shut off services in your [...] your living situation today? I have a [facility] place to live 09/19/2023 Sex and Gender Information Value Date Recorded Sex Assigned at Female 09/19/2023 8:25 PM CDT Gender Identity Female 09/19/2023 8:25 PM CDT Sexual Orientation Straight 09/19/2023 8: 25 PM CDT documented as of this encounter OR Notes * Anesthesia Postprocedure Evaluation - Cale Chun APRN, CRNA - 10/15/2023 1:48 PM CDT Patient: Tanisha John Procedure Summary Date: 10/15/23 Room / Location: Division of Gastroenterology in [place], [place] Anesthesia Start: 1250 Anesthesia Stop: 1348 Procedures: ENDOSCOPIC ULTRASOUND (EUS) ERCP Diagnosis: Cyst Pancreas Scheduled Providers: Rhina Watts M.D. Responsible Provider: Cale Chun APRN, CRNA Anesthesia Type: general ASA Status: 2 Anesthesia Type: general Last vitals Vitals Value Taken Time BP 119/58 10/15/23 1345 Temp Pulse 66 10/15/23 1348 Resp 10 10/15/23 1348 SpO2 92 % 10/15/23 1348 Vitals shown include unfiled device data. Please reference Vitals flowsheet for most recent vital signs. Anesthesia Post Evaluation Patient Disposition: dismissal Cardiovascular status: hemodynamics (HR & BP) acceptable Respiratory status: patent airway with spontaneous effort Temperature: normothermic Oxygen requirements: room air Level of consciousness: awake Pain score: pain adequately controlled and/or at baseline Post Op nausea/vomiting: none Hydration status: euvolemic * Anesthesia Procedure Notes - Cale Chun APRN, CRNA - 10/15/2023 1:11 PM CDTAssociated Order(s): Airway Airway Date/Time: 10/15/2023 1:00 PM Performed by: Cale Chun APRN, CRNA Authorized by: Cale Chun APRN, CRNA Patient location during procedure: OR / Procedure Area PROCEDURE DETAILS: Mask difficulty assessment: easy mask Final airway type: video laryngoscope Laryngeal Manipulation: no Final best view of glottic structures - Cormack/Lehane Score: grade 1 ETT location: oral VL device: glide scope Taylor scope blade size: 3 Tube size: 7 ETT distance at teeth/gum: 22 Oral tube type: standard ETT Cuffed: yes Number of attempt to successful placement: 1 Airway confirmation: bilateral breath sounds, positive ETCO2 and bilateral chest rise Other previous techniques attempted: none PRE PROCEDURE DETAILS: Pre evaluation for airway management: procedure Urgency: elective Preop assessment of probable difficulty: no difficulty anticipated Preoxygenation: bag valve mask SEDATION / ANESTHESIA Anesthesia method: anesthesia POST PROCEDURE DETAILS: Procedure outcome: successful Notable Events: no complications * Anesthesia Preprocedure Evaluation - Tiera Purdy M.D. - 10/15/2023 12:39 PM CDT Preprocedure Anesthesia & H&P Assessment Procedure Summary Date/Time: 10/15/23 1315 Scheduled providers: Rhina Watts M.D. Procedures: ENDOSCOPIC ULTRASOUND (EUS) ERCP Diagnosis: Cyst Pancreas [K86.2] Location: Division of Gastroenterology in [place], [place] Pertinent components of the patient's history including current problem list, medical history, surgical history, family history, social history, medications and allergies were reviewed. Present illness and pre-op diagnosis were confirmed. The planned surgery / procedure was verified with the patient / legal guardian. The patient's general health condition remains unchanged RELEVANT COMORBID CONDITIONS No relevant active problems OBJECTIVE PHYSICAL EXAMINATION Airway (HEENT) Mallampati: I TM Distance: >3 FB Neck ROM: Full Mouth Opening: >3 cm Upper Lip Bite Test Class: I Cardiovascular Rhythm: Regular Rate: Normal Cardiovascular Assessment: cardiovascular normal Functional Capacity: >4 METS Pulmonary Pulmonary Assessment: Clear General / Constitutional Constitutional Assessment: Normal General State of Health:: healthy appearing and calm Neurological Neurologic Assessment: alert Dental Dental Assessment: dentition intact ASSESSMENT / PLAN ANESTHESIA PLAN ASA: 2 Anesthesia Plan: general Patient seen and allergies reviewed, anesthesia plan and risks discussed directly with patient /legal guardian or through an seismic interpreter. The use of blood products not discussed Approval to Proceed: approved for anesthesia Blessing gutierrez from [place], [place]; BMI 21; HLD; migraines; pancreatic cyst; here for EUS/ERCP; no prior [place] intubation documentation records; MP 1; Plan GETA documented in this encounter Plan of Treatment Not on file documented as of this encounter Procedures Procedure Name Priority Date/Time Associated Diagnosis Comments LDA ANE ENDOTRACHEAL AIRWAY Routine 10/15/2023 1:00 PM CDT documented in this encounter Results * LDA ANE ENDOTRACHEAL AIRWAY (10/15/2023 1:00 PM CDT) Narrative Cale Chun APRN, CRNA - 10/15/2023 1:00 PM CDT Cale hCun APRN, CRNA ? 10/15/2023 ??1:12 PM Airway Date/Time: 10/15/2023 1:00 PM Performed by: Cale Chun APRN, CRNA Authorized by: Cale Chun APRN, CRNA ?? Patient location during procedure: OR / Procedure Area PROCEDURE DETAILS: Mask difficulty assessment: easy mask Final airway type: video laryngoscope Laryngeal Manipulation: no ?? Final best view of glottic structures - Cormack/Lehane Score: grade 1 ETT location: oral VL device: glide scope Taylor scope blade size: 3 Tube size: 7 ETT distance at teeth/gum: 22 Oral tube type: standard ETT Cuffed: yes Number of attempt to successful placement: 1 Airway confirmation: bilateral breath sounds, positive ETCO2 and bilateral chest rise Other previous techniques attempted: none PRE PROCEDURE DETAILS: Pre evaluation for airway management: procedure Urgency: elective Preop assessment of probable difficulty: no difficulty anticipated Preoxygenation: bag valve mask SEDATION / ANESTHESIA Anesthesia method: anesthesia POST PROCEDURE DETAILS: ? Procedure outcome: successful ?? Notable Events: no complications Cale Chun APRN, CRNA ANESTHESIA ORDERABLES documented in this encounter Visit Diagnoses Not on filedocumented in this encounter Administered Medications Inactive Administered Medications - up to 3 most recent administrations Medication Order MAR Action Action Date Dose Rate Site dexAMETHasone injection (DECADRON) intravenous, As needed, Starting on Sun10/15/23 at 1308, Anesthesia Intra-op Given 10/15/2023 1:08 PM CDT 6 mg ePHEDrine (PF) injection intravenous, As needed, Starting on Sun10/15/23 at 1321, Anesthesia Intra-op Given 10/15/2023 1:30 PM CDT 10 mg Given 10/15/2023 1:21 PM CDT 15 mg fentaNYL injection (SUBLIMAZE) intravenous, As needed, Starting on Sun10/15/23 at 1256, Anesthesia Intra-op Given 10/15/2023 12:56 PM CDT 100 mcg Lactated Ringer's intravenous, Continuous Infusion: Per Instructions PRN, Starting on Sun10/15/23 at 1250, Anesthesia Intra-op New Bag 10/15/2023 12:50 PM CDT lidocaine (PF) (cardiac) injection intravenous, As needed, Starting on Sun10/15/23 at 1256, Anesthesia Intra-op Given 10/15/2023 12:56 PM CDT 100 mg ondansetron (PF) injection (ZOFRAN) intravenous, As needed, Starting on Sun10/15/23 at 1308, Anesthesia Intra-op Given 10/15/2023 1:08 PM CDT 4 mg propofol 10 mg/mL infusion (DIPRIVAN) intravenous, Continuous Infusion: Per Instructions PRN, Starting on Sun10/15/23 at 1256, Anesthesia Intra-op New Bag 10/15/2023 12:56 PM CDT 125 mcg/kg/min 47.325 mL/hr propofoL injection (DIPRIVAN) intravenous, As needed, Starting on Sun10/15/23 at 1256, Anesthesia Intra-op Given 10/15/2023 12:56 PM CDT 160 mg succinylcholine (PF) injection (ANECTINE) intravenous, As needed, Starting on Sun10/15/23 at 1256, Anesthesia Intra-op Given 10/15/2023 12:56 PM CDT 100 mg documented in this encounter
--- OUTSIDE RECORDS SUMMARY | 2024-01-01 11:48 | XMS_ITS | Encounter Summary ---
Author Organization [facility] Address [address] [place] [address] Care Team Providers Care Wood Router Hand Name Role Phone Unavailable Primary Care Provider Unavailabl e Encounter Details Date Type Department Care Team ([facility] st Contact Info) Description 11/08/2023 8:55 AM CDT Ancillary Procedure Department of Radiology in [place], [place] [address] [place] [phone] Jesus Agustin M.B.B.S. [address] [place] [phone] Cyst Pancreas Social History Tobacco Use Types Packs/Day Years Used Date Smoking Tobacco: Never Passive Smoke Exposure: Yes Smokeless Tobacco: Never Comments:My father smoked wh en i was growin up Alcohol Use Standard Drinks/Week Comments Yes 1 (1 standard drink = 0.6 oz pur e alcohol) [facility] Utilities Answer Date Recorded In the past [address] [facility] electric, gas, oil, or water [employer] threatened to shut off services in your [...] your living situation today? I have a [facility] place to live 09/19/2023 Sex and Gender Information Value Date Recorded Sex Assigned at Female 09/19/2023 8:25 PM CDT Gender Identity Female 09/19/2023 8:25 PM CDT Sexual Orientation Straight 09/19/2023 8: 25 PM CDT documented as of this encounter Plan of Treatment Not on file documented as of this encounter Procedures Procedure Name Priority Date/Time Associated Diagnosis Comments INTERPRETATION OF OUTSIDE CT ABDOMEN AND OR PELVIS RAD - Routine (most inpatients and all outpatients) 11/08/2023 8:57 AM CDT Cyst Pancreas documented in this encounter Results * Interpretation of Outside [...] Outside CT abdomen pelvis with IV contrast strinfgyrym73/15/2023. FINDINGS: Mildly dilated intrahepatic and extrahepatic bile [...] othercause for ductal dilatation is appreciated. Jesus LAKHANI CT PROCEDURE S documented in this encounter Visit Diagnoses Diagnosis Cyst Pancreas documented in this encounter
--- OUTSIDE RECORDS SUMMARY | 2024-01-01 11:48 | XMS_ITS | Referral Summary ---
Author Organization [facility] Address [address] [place] [id number] Care Team Providers Care District Court Justice Name Role Phone Unavailable Primary Care Provider Unavailabl e Source Comments Patient records contain information from all sites at [facility]. For routine questions regarding patient records, call [phone] during business hours, M-F 8:00 AM - 5:00 PM Central Time. Record requests for emergency care only can be directed to [phone] at any time.[facility] Encounters Date Type Department Care Team Description 11/18/2023 Orders Only Division of Gastroenterology in [place], [place] [address] [place] [phone] Jesus Agustin M.B.B.S. Cyst Pancreas (Primary Dx) 11/08/2023 8:55 AM CDT Ancillary Procedure Department of Radiology in [place], [place] [address] [place] [phone] Jesus Agustin M.B.BDianeS. Cyst Pancreas 11/08/2023 Orders Only Division of Gastroenterology in [place], [place] [address] [place] [phone] Jesus Agustin M.B.B.S. Cyst Pancreas (Primary Dx) 10/15/2023 11:20 AM CDT Ancillary Procedure Department of Gastroenterology 10/15/2023 12:02 PM CDT - 10/15/2023 12:19 PM CDT Hospital Encounter Division of Gastroenterology in [place], [place] [address] [place] [phone] Jesus Agustin M.B.B.SRhina Davenport M.D. Cyst Pancreas Discharge Disposition: Home or Self Care 10/15/2023 12:50 PM CDT Anesthesia Event Division of Gastroenterology in [place], [place] [address] [place] [address] Cale Chun APRN, CRNA Warner, Mary E, M.D. from Last 3 Months Allergies Active Allergy Reactions Criticality Noted Date Comments Penicillins Rash High 08/02/2011 Sulfa (Sulfonamide Antibiotics) Other (see comments),GI intolerance Medium 08/17/2010 Burning in eyes Burning eyes in response to sulfa eye drops Burning eyes in response to sulfa eye drops Burning eyes in response to sulfa eye drops Burning eyes in response to sulfa eye drops Medications Medication Sig Dispensed Refills Start Date End Date Status cholecalciferol (VITAMIN D3) 50 mcg (2,000 Unit) capsule Take 50 mcg by mouth. 07/25/2022 Active escitalopram (LEXAPRO) 20 mg tablet Take 20 mg by mouth daily. Active simvastatin (ZOCOR) 40 mg tablet Take 40 mg by mouth at bedtime. Active melatonin (MELADOX) 3 mg ER tablet Take 4 mg by mouth at bedtime. Active albuterol 90 mcg/actuation inhaler Inhale 2 puffs 4 (four) times a day as needed. Active valACYclovir (VALTREX) 500 mg tablet Take 3 Tabs by mouth once every day as needed (for cold sore). Active hydrocortisone (ANUSOL-HC) 25 mg suppository Apply 1 Suppository rectally twice a day. 07/19/2017 Active triamcinolone (KENALOG) 0.1 % cream Apply 1 application to affected area twice a day. 04/08/2018 Active magnesium 200 mg tablet Take 200 mg by mouth every morning before breakfast. Active vitamin D3/vitamin K2, MK4, (K2 PLUS D3 ORAL) Take 500 mg by mouth daily. Active Social History Tobacco Use Types Packs/Day Years Used Date Smoking Tobacco: Never Passive Smoke Exposure: Yes Smokeless Tobacco: Never Comments:My father smoked wh en i was growin up Alcohol Use Standard Drinks/Week Comments Yes 1 (1 standard drink = 0.6 oz pur e alcohol) [facility] Utilities Answer Date Recorded In the past 12 months has [employer] gas, oil, or water [employer] threatened to shut off services in your [...] your living situation today? I have a [facility] place to live 09/19/2023 Sex and Gender Information Value Date Recorded Sex Assigned at Female 09/19/2023 8:25 PM CDT Gender Identity Female 09/19/2023 8:25 PM CDT Sexual Orientation Straight 09/19/2023 8: 25 PM CDT Last Filed Vital Signs Vital Sign Reading Time Taken Comments Blood Pressure 144/55 10/15/2023 2:55 PM CDT Pulse 71 10/15/2023 3:10 PM CDT Temperature 37 ??C (98.6 ??F) 10/15/2023 1:48 PM CDT Respiratory Rate 21 10/15/2023 3:10 PM CDT Oxygen Saturation 92% 10/15/2023 3:10 PM CDT Inhaled Oxygen Concentration - - Weight 63.1 kg (139 lb 1.8 oz) 09/24/2023 12:58 PM CDT Height 172 cm (5' 7.72) 09/24/2023 12:58 PM CDT Body Mass Index 21.33 09/24/2023 12:58 PM CDT Plan of Treatment Not on file Medical Devices Implanted Type Area Bioprocessing Manufacturing Technician Device Identifier Shelf Expiration Date Model / Serial / Lot Knee Implant Knee Implant Right: Knee Ocular (Eye) Implant Ocular (Eye) Implant Bilatera l: Eye Procedures Procedure Name Priority Date/Time Associated Diagnosis Comments INTERPRETATION OF OUTSIDE CT ABDOMEN AND OR PELVIS RAD - Routine (most inpatients and all outpatients) 11/08/2023 8:57 AM CDT Cyst Pancreas LDA ANE ENDOTRACHEAL AIRWAY Routine 10/15/2023 1:00 PM CDT GASTROENTEROLOGY IMAGE EXAM Routine 10/15/2023 11:20 AM CDT UPPER EUS Routine 10/15/2023 11:19 AM CDT Cyst Pancreas ENDOSCOPIC ULTRASOUND (EUS) Routine 10/15/2023 11:19 AM CDT Cyst Pancreas COMPREHENSIVE METABOLIC PANEL, S/P Routine 09/24/2023 2:54 PM CDT Cyst Pancreas BI BREAST SCREENING BILATERAL WITH TOMOSYNTHESIS RAD - Routine (most inpatients and all outpatients) 10/07/2020 2:41 PM CDT from Last 3 Months or Most Recently Relevant to Health Maintenance Results * Interpretation of Outside CT Abdomen [...] Outside CT abdomen pelvis with IV contrast [id number]/15/2023. FINDINGS: Mildly dilated intrahepatic and extrahepatic bile [...] is appreciated. Jesus LAKHANI CT PROCEDURE S * LDA ANE ENDOTRACHEAL AIRWAY (10/15/2023 1:00 PM CDT) Narrative Cale Chun APRN, JESUS - 10/15/2023 1:00 PM CDT Cale Chun APRN, JESUS ? 10/15/2023 ??1:12 PM Airway Date/Time: 10/15/2023 [...] ETT location: oral VL device: glide scope [place] scope blade size: 3 Tube size: 7 [...] complications Cale Chun APRN, CRNA ANESTHESIA ORDERABLES * Upper EUS-Gastroenterology Image Exam (10/15/2023 11:20 AM CDT) 10/15/2023 11:1 9 AM CDT Narrative [facility] - 10/15/2023 2:59 PM CDT This order has been created and auto-finalized to support the import of images acquired without order. The clinical documentation to support these images can be found on the encounter that produced images. Provider Not In System IMG NON RAD IMAGI NG PROCEDURES IIIA NA * Upper EUS (10/15/2023 11:19 AM CDT) 10/15/2023 11:1 9 AM CDT Impressions DO [employer] - 10/15/2023 5:12 PM CDT Post-op Diagnoses: [...] ? - No lymphadenopathy. No ascites. Narrative [place] [employer] - 10/15/2023 5:12 PM CDT Gonda 2 [...] AM Jesus Martel GI PROCEDURE ORD ERABLES DO [facility] NA * Comprehensive Metabolic Panel (09/24/2023 2:54 PM CDT) Potassium, S 4.8 3.6 - 5.2 mmol/L [...] PM CDT Jesus Martel LAB BLOOD ADD-ON [facility] [address] [place] [address], [facility] Formerly named [facility] [address] [place] [address] from Last 3 Months or Most Recently Relevant to Health Maintenance
--- OUTSIDE RECORDS SUMMARY | 2024-01-01 11:48 | XMS_ITS | Encounter Summary ---
Author Organization [facility] Address [address] [place] [address] Care Team Providers Care Used [employer] Name Role Phone Unavailable Primary Care Provider Unavailabl e Encounter Details Date Type Department Care Team (Latest Contact Info) Description 10/15/2023 11:20 AM CDT Ancillary Procedure Department of Gastroenterology Social History Tobacco Use Types Packs/Day Years Used Date Smoking Tobacco: Never Passive Smoke Exposure: Yes Smokeless Tobacco: Never Comments:My father smoked wh en i was growin up Alcohol Use Standard Drinks/Week Comments Yes 1 (1 standard drink = 0.6 oz pur e alcohol) [facility] Utilities Answer Date Recorded In the past 12 months has e electric, gas, oil, or water company [...] your living situation today? I have a [facility] place to live 09/19/2023 Sex and Gender Information Value Date Recorded Sex Assigned at Female 09/19/2023 8:25 PM CDT Gender Identity Female 09/19/2023 8:25 PM CDT Sexual Orientation Straight 09/19/2023 8: 25 PM CDT documented as of this encounter Plan of Treatment Not on file documented as of this encounter Procedures Procedure Name Priority Date/Time Associated Diagnosis Comments GASTROENTEROLOGY IMAGE EXAM Routine 10/15/2023 11:20 AM CDT documented in this encounter Results * Upper EUS-Gastroenterology Image Exam (10/15/2023 11:20 AM CDT) 10/15/2023 11:1 9 AM CDT Narrative [facility] - 10/15/2023 2:59 PM CDT This order has been created and auto-finalized to support the import of images acquired without order. The clinical documentation to support these images can be found on the encounter that produced images. Provider Not In System IMG NON RAD IMAGI NG PROCEDURES [facility] NA documented in this encounter Visit Diagnoses Not on filedocumented in this encounter
--- OUTSIDE RECORDS SUMMARY | 2024-01-01 11:48 | XMS_ITS | Clinical Summary ---
Author Organization [facility] Address [address] [place] [address] Care Team Providers Care Director Of Architecture Name Role Phone Unavailable Primary Care Provider Unavailabl e Source Comments Patient records contain information from all sites at [facility]. For routine questions regarding patient records, call [phone] during business hours, M-F 8:00 AM - 5:00 PM Central Time. Record requests for emergency care only can be directed to [phone] at any time.[facility] Allergies Active Allergy Reactions Criticality Noted Date [...] Take 500 mg by mouth daily. Active Encounters Date Type Department Care Team Description 11/18/2023 Orders Only Division of Gastroenterology in [place], [place] [address] [place] [address] Jesus Agustin M.B.B.SDiane Cyst Pancreas (Primary Dx) 11/08/2023 8:55 AM CDT Ancillary Procedure Department of Radiology in [place], [place] [address] [place] [address] Jesus Agustin M.B.B.SDiane Cyst Pancreas 11/08/2023 Orders Only Division of Gastroenterology in [place], [place] [address] [place] [address] Jesus Agustin M.B.B.SDiane Cyst Pancreas (Primary Dx) 10/15/2023 12:50 PM CDT Anesthesia Event Division of Gastroenterology in [place], [place] [address] [place] [address] Cale Chun APRN, CRNA Warner, Mary E, M.D. 10/15/2023 12:02 PM CDT - 10/15/2023 12:19 PM CDT Hospital Encounter Division of Gastroenterology in [place], [place] [address] [place] [address] Jesus Agustin M.B.B.SRhina Davenport M.D. Cyst Pancreas Discharge Disposition: Home or Self Care 10/15/2023 11:20 AM CDT Ancillary Procedure Department of Gastroenterology from Last 3 Months Family History Medical History Relation Name Comments Coronary artery disease Father Linus Louise atal heart attack, age 45 Colon polyps Maternal Grandmother Marissa John Alcohol abuse Mother Raquel Alcaraz Anxiety disorder Mother Raquel Alcaraz Breast cancer Mother Raquel Alcaraz Depression Mother Raquel Alcaraz Leukemia Mother Raquel Alcaraz Sleep apnea Sister Shi Leonard Relation Name Status Comments Father Linus Alcaraz Maternal Grandmother Marissa Lopez Mother Raquel Alcaraz Sister Shi Leonard Social History Tobacco Use Types Packs/Day Years Used Date Smoking Tobacco: Never Passive Smoke Exposure: Yes Smokeless Tobacco: Never Comments:My father smoked wh en i was growin up Alcohol Use Standard Drinks/Week Comments Yes 1 (1 standard drink = 0.6 oz pur e alcohol) [facility] Utilities Answer Date Recorded In the past [...] your living situation today? I have a [facility] place to live 09/19/2023 Sex and Gender [...] 09/24/2023 12:58 PM CDT Plan of Treatment Health Maintenance Due Date Last Done Comments CT Colonography 1950 Cologuard 1950 Hepatitis C Screening 1950 Mammogram 10/07/2021 10/07/2020, 07/2020, 03/14/2019, Additional history exists Depression Screening (Annual PHQ-2) 07/09/2023 COVID-19 Vaccine (2022-2 4 season) 2023 04/11/2023, 05/03/2022, 11/25/2021, Additional history exists Fasting Glucose for Diabetes Screening 09/23/2026 09/24/2023 Colonoscopy 07/31/2028 07/31/2023, 10/09/2016 Colorectal Cancer Surveillance 07/31/2028 DTaP,Tdap,and Td Vaccines (3 - Td or Tdap) 09/14/2030 09/14/2020, 08/17/2010 Pneumococcal vaccine (65+ years) Completed 04/23/20, 09/22/2016 Bone Density Scan (Osteoporo sis Screen) Discontinued 05/16/2018 Zoster Vaccines Completed 06/09/2020, 08/2019, 08/17/2010 Influenza Vaccine Completed 06/14/2023, , 05/25/2021, Additional history exists Fall Risk Screen (Annual) Completed 10/15/2023 Medical Devices Implanted Type Area Community Development Technician Device Identifier Shelf Expiration Date Model [...] Outside CT abdomen pelvis with IV contrast [id number]/15/2023. FINDINGS: Mildly dilated intrahepatic and extrahepatic bile [...] appreciated. Jesus Martel IMG CT PROCEDURE S * LDA ANE ENDOTRACHEAL AIRWAY (10/15/2023 1:00 PM CDT) Narrative Cale Chun APRN, CRNA - 10/15/2023 1:00 PM CDT Cale Chun APRN, CRNA ? 10/15/2023 ??1:12 PM Airway [...] ETT location: oral VL device: glide scope [place] scope blade size: 3 Tube size: 7 [...] NON RAD IMAGI NG PROCEDURES IIMS NA * Upper EUS (10/15/2023 11:19 AM [...] ? - No lymphadenopathy. No ascites. Narrative DO PROVATION - 10/15/2023 5:12 PM CDT Gonda [...] AM Jesus Martel GI PROCEDURE ORD ERABLES HI LOUIS NA * Comprehensive Metabolic Panel (09/24/2023 2:54 [...] Jesus Martel LAB BLOOD ADD-ON [facility] [address] [place] [address], [facility] DTL [facility] [address] [place] [address] from Last 3 Months or Most Recently Relevant to Health Maintenance
--- OUTSIDE RECORDS SUMMARY | 2024-01-01 11:48 | XMS_ITS | Clinical Summary ---
Author Organization [facility] Address [place], [place] [address] Care Team Providers Care Product Support Sales Representative Name Role Phone Demetria [place] MD Primary Care Provider + Allergies Active Allergy Reactions Criticality Noted Date Comments Penicillins Rash 02/16/2022 Sulfa (Sulfonamide Antibiotics) Other - Describe In Comment Field 02/16/2022 Burning in eyes Medications Medication Sig Dispensed Refills Start Date End Date Status simvastatin (ZOCOR) 40 mg tablet Take 40 mg by mouth at bedtime. 11/29/2021 Active albuterol HFA (PRO-AIR; VENTOLIN; PROVENTIL) 90 mcg/actuation inhaler Inhale 2 Puffs by mouth 4 times daily if needed. Active cholecalciferol, vitamin D3, (D3-50 CHOLECALCIFEROL ORAL) Take by mouth once daily. Active escitalopram oxalate (LEXAPRO) 20 mg tablet Take 20 mg by mouth once daily. Active valACYclovir (VALTREX) 1 gram tablet Take 2 g by mouth once daily if needed. Active SUMAtriptan (IMITREX) 50 mg tablet Take 50 mg by mouth. TAKE 1 TABLET BY MOUTH EVERY DAY NEEDED FOR MIGRAINE HEADACHE 11/28/2022 Active aspirin 81 mg cap Take 1 Tablet by mouth once daily. Active Active Problems Problem Noted Date Diagnosed Date Dilated bile duct 11/25/2020 Family History Medical History Relation Name Comments Heart Disease Father Cancer-colon Maternal Grandmother Cancer-breast Mother Relation Name Status Comments Brother Alive Daughter Alive Father Maternal Grandfather Maternal Grandmother Mother Paternal Grandfather Paternal Grandmother Sister Alive Son Alive Social History Tobacco Use Types Packs/Day Years Used Date Smoking Tobacco: Never Passive Smoke Exposure: Never Smokeless Tobacco: Never Tobacco Cessation:Counseling Given: Not Answered Alcohol Use Standard Drinks/Week Comments Not Currently 0 (1 standard drink = 0.6 oz pure alcohol) 1 to 2 glasses wine per week prior to pancreatic cyst DX Sex and Gender Information Value Date Recorded Sex Assigned at Not on file Gender Identity Not on file Sexual Orientation Not on file Obstetrics History Last Filed Vital Signs Vital Sign Reading Time Taken Comments Blood Pressure 141/70 07/31/2023 11:10 AM JOURNEYMAN PIPEFITTER Pulse 56 07/31/2023 11:10 AM JOURNEYMAN PIPEFITTER Temperature 36.3 ??C (97.4 ??F) 07/31/2023 10:[address] Respiratory Rate 16 07/31/2023 11:10 AM JOURNEYMAN PIPEFITTER Oxygen Saturation 99% 07/31/2023 11:10 AM JOURNEYMAN PIPEFITTER Inhaled Oxygen Concentration - - Weight 65.9 kg (145 lb 4 oz) 03/16/2023 2:53 PM CDT Height 167.6 cm (5' 6) 03/16/2023 2:53 PM CDT Body Mass Index 23.44 03/16/2023 2:53 PM CDT Plan of Treatment Health Maintenance Due Date Last Done Comments Tdap 1959 Depression screening for age 12+ 1960 BMI (ht and wt on same day) for age 18+ 1966 Hepatitis C screening for age 18-79 1966 Tetanus booster 1968 Lipids for age 45-75 1993 Zoster (shingles) series for age 50+ (1 of 2) 04/24/19 98 DEXA/DXA scan for age 65+ 2013 Medicare Wellness for age 65+ 2013 Pneumococcal series for age 65+ (1 of 1 - PCV) 013 COVID-19 vaccine series (2 - season) 2023 Influenza for age 65+ 03/09/2024 Colonoscopy through age 75 07/31/2033 07/31/2023 Procedures Procedure Name Priority Date/Time Associated Diagnosis Comments COLONOSCOPY 07/31/2023 10:05 AM JOURNEYMAN PIPEFITTER from Last 3 Months or Most Recently Relevant to Health Maintenance Results * COLONOSCOPY (07/31/2023 10:05 AM JOURNEYMAN PIPEFITTER) 07/31/2023 10:0 5 AM JOURNEYMAN PIPEFITTER Narrative Transcriptions Bobo Almanza MD - 07/31/2023 11:02 AM CST [place] for Advanced Endoscopy Patient Name: Tanisha John Procedure Date: 07/31/2023 Gender: Female Date of : 1950 Admit Type: Ambulatory Procedure: Colonoscopy Proceduralist: Bobo Almanza MD - [facility] Referring MD: Bobo Almanza MD Indications/Pre-Op Diagnosis: Follow-up of diverticulitis Medications: Monitored Anesthesia Care Procedure Description: The patient had risks, benefits and alternatives explained to andgave informed consent. The patient had a stable cardiopulmonary status and judged an adequate candidate for sedation. The endoscope [id number] was passed through the anus and advanced to the cecum, identified by appendiceal orifice andileocecal valve. The colonoscopy was performed without difficulty. The patient tolerated the procedure well. The quality of the bowel preparationwas good. Complications: No immediate complications. Estimated Blood Loss & Specimen: Estimated blood loss: none. Specimen collected: None Findings: Many small-mouthed diverticula were found in the sigmoid colon. The exam was otherwise without abnormality on direct and retroflexion views. Impressions/Post-Op Diagnosis: - Diverticulosis in the sigmoid colon. - The examination was otherwise normal on direct and retroflexionviews. Recommendation: - Repeat colonoscopy in 10 years for screening purposes. Bobo Almanza MD 07/31/2023 11:02:14 AM This report has been signed electronically. Note Initiated On: 07/31/2023 10:05 AM Bobo Almanza MD PROCEDURE ORD from Last 3 Months or Most Recently Relevant to Health Maintenance Advance Directives * Full Code (Latest Code Status on File) Date Activated Date Inactivated Comments 07/31/2023 9:56 AM 07/31/2023 1:30 PM Question Answer Comments Code Status Discussion: Unable to Assess Preferences, Provider to review later * Full Code Date Activated Date Inactivated Comments 03/20/2023 8:38 AM 03/20/2023 1:26 PM Question Answer Comments Code Status Discussion: Unable to Assess Preferences, Provider to review later Care Teams Product Support Sales Representative Relationship Specialty Start Date End Date Demetria [place] MD [address] [place] [address] PCP - General Family Practice 02/27/23
--- OUTSIDE RECORDS SUMMARY | 2024-01-01 11:48 | XMS_ITS | Encounter Summary ---
Author Organization [facility] Address [address] [place] [address] Care Team Providers Care Doctor Of Naturopathic Medicine Name Role Phone Unavailable Primary Care Provider Unavailabl e Reason for Referral * MRI/CAT/PET Scan (Routine) - Authorized Specialty Diagnoses / Procedures Referred By Contac t Referred To Contact Radiology Diagnoses Cyst Pancreas Procedures MR Abdomen MRCP without and with IV Contrast Jesus Agustin M.B.B.S. [address] [place] [phone] [facility] Referral ID Status Reason Start Date Expiration Date V isits Requested Visits Authorized [id number] Authorized 11/18/2023 11/17/2024 1 1 Encounter Details Date Type Department Care Team (Latest Contact Info) Description 11/18/2023 Orders Only Division of Gastroenterology in [place], [place] [address] [place] [phone] Jesus Agustin M.B.B.S. [address] [place] [phone] Cyst Pancreas (Primary Dx) Social History Tobacco Use Types Packs/Day Years Used Date Smoking Tobacco: Never Passive Smoke Exposure: Yes Smokeless Tobacco: Never Comments:My father smoked wh en i was growin up Alcohol Use Standard Drinks/Week Comments Yes 1 (1 standard drink = 0.6 oz pur e alcohol) [facility] Utilities Answer Date Recorded In the past [...] Type Priority Associated Diagnoses Orde r Schedule MR Abdomen MRCP without and with IV Contrast Imaging RAD - Routine (most inpatients and all outpatients) Cyst Pancreas Expected: 04/18/2024, Expires: 02/17/2025 documented as of this encounter Visit Diagnoses Diagnosis Cyst Pancreas- Primary documented in this encounter
== END 2023-12-14 10:27 | disposition home or self-care (01) ==
LOC: NFLDREF 01-01 11:44
PROVIDERS: PCP Family Medicine; Referring Provider Family Medicine; Visit Provider Family Medicine
DX: M81.0 Age-related osteoporosis without current pathological fracture (principal); E78.5 Hyperlipidemia, unspecified
CPT/HCPCS: 80053; 80061; 82306

== ENCOUNTER 2024-01-17 15:21 | Outpatient (CLI) | payer OTHER, SELFPAY ==
--- OUTSIDE RECORDS SUMMARY | 2024-01-17 15:24 | XMS_ITS | Clinical Summary ---
Author Organization [facility] Address [address] [place] [address] Care Team Providers Care Java Developer Consultant Name Role Phone Unavailable Primary Care Provider Unavailabl e Source Comments Patient records contain information from all sites at [facility]. For routine questions regarding patient records, call [phone] during business hours, M-F 8:00 AM - 5:00 PM Central Time. Record requests for emergency care only can be directed to [phone] at any time.[facility] Allergies Active Allergy Reactions Criticality Noted Date [...] 11/18/2023 Orders Only Division of Gastroenterology in [place], [place] [address] [place] [address] Jesus Agustin M.B.B.S. Cyst Pancreas (Primary Dx) 11/08/2023 8:55 AM CDT Ancillary Procedure Department of Radiology in [place], [place] [address] [place] [address] Jesus Agustin M.B.B.S. Cyst Pancreas 11/08/2023 Orders Only Division of Gastroenterology in [place], [place] [address] [place] [address] Jesus Agustin M.B.B.S. Cyst Pancreas (Primary Dx) from Last 3 Months Family History Medical History Relation Name Comments Coronary artery disease Father Linus Louise atal heart attack, age 45 Colon polyps Maternal Grandmother Marissa Larsonluisa Alcohol abuse Mother Raquel Alcaraz Anxiety disorder [...] drink = 0.6 oz pur e alcohol) [facility] Utilities Answer Date Recorded In the past 12 months has [employer], gas, oil, or water [employer] threatened to shut off services in your [...] your living situation today? [facility] place to live 09/19/2023 Sex and [...] 2023 04/11/2023, 05/03/2022, 11/25/2021, Additional history exists Influenza Vaccine (#1) 2024 , 05/03/2022, 05/25/2021, Additional history exists Fasting Glucose for Diabetes Screening 09/23/2026 09/24/2023 Colonoscopy 07/31/2028 07/31/2023, 10/09/2016 Colorectal Cancer Surveillance 07/31/2028 DTaP,Tdap,and Td Vaccines (3 - Td or Tdap) 09/14/2030 09/14/2020, 08/17/2010 Pneumococcal vaccine (65+ years) Completed 04/23/20, 09/22/2016 Bone Density Scan (Osteoporo sis Screen) Discontinued 05/16/2018 Zoster Vaccines Completed 06/09/2020, 08/2019, 08/17/2010 Fall Risk Screen (Annual) Completed 10/15/2023 Medical Devices Implanted Type Area Profile Grinder Technician Device Identifier Shelf Expiration Date Model / Serial / Lot Knee Implant Knee Implant Right: Knee Ocular (Eye) Implant Ocular (Eye) Implant Bilatera l: Eye Procedures Procedure Name Priority Date/Time Associated Diagnosis Comments INTERPRETATION OF OUTSIDE CT ABDOMEN AND OR PELVIS RAD - Routine (most inpatients and all outpatients) 11/08/2023 8:57 AM CDT Cyst Pancreas COMPREHENSIVE METABOLIC PANEL, [...] in the uncinate process 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 Pancreas is otherwise normal without evidence of [...] Outside CT abdomen pelvis with IV contrast [id number]/15/2023. FINDINGS: Mildly dilated intrahepatic and extrahepatic bile [...] Jesus Martel IMG CT PROCEDURE S * Comprehensive Metabolic Panel (09/24/2023 2:54 PM [...] PM CDT Jesus Martel LAB BLOOD ADD-ON [facility] [address] [place] [address], [facility] DTL [facility] [address] [place] [address] from Last 3 Months or Most Recently Relevant to Health Maintenance
--- OUTSIDE RECORDS SUMMARY | 2024-01-17 15:24 | XMS_ITS | Referral Summary ---
Author Organization [facility] Address [address] [place] [address] Care Team Providers Care Irrigation System Installer Name Role Phone Unavailable Primary Care Provider Unavailabl e Source Comments Patient records contain information from all sites at [facility]. For routine questions regarding patient records, call [phone] during business hours, M-F 8:00 AM - 5:00 PM Central Time. Record requests for emergency care only can be directed to [phone] at any time.[facility] Encounters Date Type Department Care Team Description 11/18/2023 Orders Only Division of Gastroenterology in [place], [place] [address] [place] [address] Jesus Agustin M.B.B.S. Cyst Pancreas (Primary Dx) 11/08/2023 8:55 AM CDT Ancillary Procedure Department of Radiology in [place], [place] [address] [place] [phone] Jesus Agustin M.B.BDianeS. Cyst Pancreas 11/08/2023 Orders Only Division of Gastroenterology in [place], [place] [address] [place] [phone] Jesus Agustin M.B.BDianeS. Cyst Pancreas (Primary Dx) from Last 3 Months Allergies Active Allergy [...] drink = 0.6 oz pur e alcohol) [facility] Utilities Answer Date Recorded In the past 12 months has th e [employer], gas, oil, or water [employer] threatened to shut off services in your [...] your living situation today? I have a [facility] place to live 09/19/2023 Sex and [...] on file Medical Devices Implanted Type Area Escape Wheel Tooth Cutter Device Identifier Shelf Expiration Date Model / [...] Outside CT abdomen pelvis with IV contrast [id number]/15/2023. FINDINGS: Mildly dilated intrahepatic and extrahepatic bile [...] PM CDT Jesus Martel LAB BLOOD ADD-ON [facility] [address] [place] [address], [facility] [address] [place] [address] from Last 3 Months or Most Recently Relevant to Health Maintenance
--- OUTSIDE RECORDS SUMMARY | 2024-01-17 15:25 | XMS_ITS | Encounter Summary ---
Author Organization [facility] Address [address] [place] [address] Care Team Providers Care Utility Hand Name Role Phone Unavailable Primary Care Provider Unavailabl e Reason for Referral * MRI/CAT/PET Scan (Routine) - Authorized Specialty Diagnoses / Procedures Referred By Contac t Referred To Contact Radiology Diagnoses Cyst Pancreas Procedures MR Abdomen MRCP without and with IV Contrast Jesus Agustin M.B.B.S. [address] [place] [phone] [facility] Referral ID Status Reason Start Date Expiration Date V isits Requested Visits Authorized [id number] Authorized 11/18/2023 11/17/2024 1 1 Encounter Details Date Type Department Care Team (Latest Contact Info) Description 11/18/2023 Orders Only Division of Gastroenterology in [place], [place] [address] [place] [phone] Jesus Agustin M.B.B.S. [address] [place] [phone] Cyst Pancreas (Primary Dx) Social History Tobacco Use Types Packs/Day Years Used Date Smoking Tobacco: Never Passive Smoke Exposure: Yes Smokeless Tobacco: Never Comments:My father smoked wh en i was growin up Alcohol Use Standard Drinks/Week Comments Yes 1 (1 standard drink = 0.6 oz pur e alcohol) [facility] Utilities Answer Date Recorded In [...] your living situation today? I have a [facility] place to live 09/19/2023 Sex and [...]
--- OUTSIDE RECORDS SUMMARY | 2024-01-17 15:25 | XMS_ITS | Encounter Summary ---
Author Organization [facility] Address [address] [place] [address] Care Team Providers Care Construction Rep Name Role Phone Unavailable Primary Care Provider Unavailabl e Encounter Details Date Type Department Care Team (Latest Contact Info) Description 11/08/2023 Orders Only Division of Gastroenterology in [place], [place] [address] [place] [address] Jesus Agustin M.B.B.S. [address] [place] [address] Cyst Pancreas (Primary Dx) Social History Tobacco Use Types Packs/Day Years Used Date Smoking Tobacco: Never Passive Smoke Exposure: Yes Smokeless Tobacco: Never Comments:My father smoked wh en i was growin up Alcohol Use Standard Drinks/Week Comments Yes 1 (1 standard drink = 0.6 oz pur e alcohol) [facility] Utilities Answer Date Recorded In the past 12 months has e [employer], gas, oil, or water [employer] threatened to shut off services in your [...] your living situation today? I have a [facility] place to live 09/19/2023 Sex and [...] Outside CT abdomen pelvis with IV contrast [id number]/15/2023. FINDINGS: Mildly dilated intrahepatic and extrahepatic bile [...]
--- OUTSIDE RECORDS SUMMARY | 2024-01-17 15:25 | XMS_ITS | Encounter Summary ---
Author Organization [facility] Address [address] [place] [address] Care Team Providers Care Flash Designer Name Role Phone Unavailable Primary Care Provider [...] drink = 0.6 oz pur e alcohol) [facility] Utilities Answer Date Recorded In [...] your living situation today? I have a [facility] place to live 09/19/2023 Sex and [...]
--- OUTSIDE RECORDS SUMMARY | 2024-01-17 15:25 | XMS_ITS | Clinical Summary ---
Author Organization [facility] Address [place], [place] [address] Care Team Providers Care Greenskeeper Supervisor Name Role Phone Demetria [place] MD Primary [...] Comments Blood Pressure 141/70 07/31/2023 11:10 AM BEAVER TRAPPER Pulse 56 07/31/2023 11:10 AM BEAVER TRAPPER Temperature 36.3 ??C (97.4 ??F) 07/31/2023 10:[address] Respiratory Rate 16 07/31/2023 11:10 AM BEAVER TRAPPER Oxygen Saturation 99% 07/31/2023 11:10 AM BEAVER TRAPPER Inhaled Oxygen Concentration - - Weight 65.9 [...] Associated Diagnosis Comments COLONOSCOPY 07/31/2023 10:05 AM BEAVER TRAPPER from Last 3 Months or Most Recently Relevant to Health Maintenance Results * COLONOSCOPY (07/31/2023 10:05 AM BEAVER TRAPPER) 07/31/2023 10:0 5 AM BEAVER TRAPPER Narrative Transcriptions Bobo Almanza MD - 07/31/2023 11:02 AM CST [place] for Advanced Endoscopy Patient Name: Tanisha John Procedure Date: 07/31/2023 Gender: Female Date of : 1950 Admit Type: Ambulatory Procedure: Colonoscopy Proceduralist: Bobo Almanza MD - [facility] Referring MD: Bobo Almanza MD Indications/Pre-Op Diagnosis: Follow-up of diverticulitis Medications: Monitored Anesthesia Care Procedure Description: The patient had risks, benefits and alternatives explained to andgave informed consent. The patient had a stable cardiopulmonary status and judged an adequate candidate for sedation. The endoscope [id number] was passed through the anus and advanced [...] Preferences, Provider to review later Care Teams Greenskeeper Supervisor Relationship Specialty Start Date End Date Demetria [place] MD [address] [place] [address] PCP - General Family Practice 02/27/23
--- OUTSIDE RECORDS SUMMARY | 2024-01-17 15:25 | XMS_ITS | Encounter Summary ---
Author Organization [facility] Address [address] [place] [address] Care Team Providers Care Director Of Agriculture Name Role Phone Unavailable Primary Care Provider Unavailabl e Reason for Referral * Outpatient (Routine) - Closed Specialty Diagnoses / Procedures Referred By Contac t Referred To Contact Diagnoses Cyst Pancreas Procedures ERCP Jesus Agustin M.B.B.S. [address] [place] [phone] [facility] Referral ID Status Reason Start Date Expiration Date Visits Re quested Visits Authorized [id number] Closed 09/24/2023 09/23/2024 1 1 * Outpatient (Routine) - Closed Specialty Diagnoses / Procedures Referred By Contac t Referred To Contact Diagnoses Cyst Pancreas Procedures Endoscopic ultrasound (EUS) Jesus Agustin M.B.B.S. [address] [place] [phone] [facility] Referral ID Status Reason Start Date Expiration Date Visits Re quested Visits Authorized [id number] Closed 09/24/2023 09/23/2024 1 1 Reason for Visit * Outpatient (Routine) - Closed Specialty Diagnoses / Procedures Referred By Contac t Referred To Contact Diagnoses Cyst Pancreas Procedures ERCP Jesus Agustin M.B.B.S. [address] [place] [phone] [facility] Referral ID Status Reason Start Date Expiration Date Visits Re quested Visits Authorized [id number] Closed 09/24/2023 09/23/2024 1 1 Encounter Details Date Type Department Care Team (Latest Contact Info) Description 10/15/2023 12:02 PM CDT - 10/15/2023 12:19 PM CDT Hospital Encounter Division of Gastroenterology in [place], [place] [address] [place] [phone] Jesus Agustin M.B.B.S. [address] [place] [phone] Rhina Watts M.D. [address] [place] [phone] Cyst Pancreas Discharge Disposition: Home or Self Care Social History Tobacco Use Types Packs/Day Years Used Date Smoking Tobacco: Never Passive Smoke Exposure: Yes Smokeless Tobacco: Never Comments:My father smoked wh en i was growin up Alcohol Use Standard Drinks/Week Comments Yes 1 (1 standard drink = 0.6 oz pur e alcohol) [facility] Utilities Answer Date Recorded In the past 12 months has th e electric, gas, oil, or water [employer] threatened to shut off services in your [...] your living situation today? I have a [facility] place to live 09/19/2023 Sex and Gender Information Value Date Recorded Sex Assigned at Female 09/19/2023 8:25 PM CDT Gender Identity Female 09/19/2023 8:25 PM CDT Sexual Orientation Straight 09/19/2023 8: 25 PM CDT documented as of this encounter Discharge Instructions * Attachments The following attachments cannot be sent through Care Everywhere. * About Your Endoscopic Ultrasound (Thai) documented in this encounter Medications at Time [...] CDT) 10/15/2023 11:1 9 AM CDT Impressions [facility] - 10/15/2023 5:12 PM CDT Post-op [...] ? - No lymphadenopathy. No ascites. Narrative [facility] - 10/15/2023 5:12 PM CDT Gonda [...] ORD ERABLES Performing Organization Address City/State/ZIP Co ak Phone Number [facility] documented in this encounter Visit Diagnoses Diagnosis Cyst Pancreas documented in this encounter
--- OUTSIDE RECORDS SUMMARY | 2024-01-17 15:25 | XMS_ITS | Encounter Summary ---
Author Organization [facility] Address [address] [place] [phone] Care Team Providers Care Boiler House Operator Name Role Phone Unavailable Primary Care Provider Unavailabl e Encounter Details Date Type Department Care Team ([facility] st Contact Info) Description 11/08/2023 8:55 AM CDT Ancillary Procedure Department of Radiology in [place], [place] [address] [place] [phone] Jesus Agustin M.B.B.S. [address] [place] [phone] Cyst Pancreas Social History Tobacco Use Types Packs/Day Years Used Date Smoking Tobacco: Never Passive Smoke Exposure: Yes Smokeless Tobacco: Never Comments:My father smoked wh en i was growin up Alcohol Use Standard Drinks/Week Comments Yes 1 (1 standard drink = 0.6 oz pur e alcohol) [facility] Utilities Answer Date Recorded In the past 12 months has [facility] electric, gas, oil, or water [employer] threatened to shut off services in your [...] your living situation today? I have a [facility] place to live 09/19/2023 Sex and Gender [...] Outside CT abdomen pelvis with IV contrast [id number]/15/2023. FINDINGS: Mildly dilated intrahepatic and extrahepatic bile [...]
--- OUTSIDE RECORDS SUMMARY | 2024-01-17 15:25 | XMS_ITS | Encounter Summary ---
Author Organization [facility] Address [address] [place] [phone] Care Team Providers Care Desulfurizer Operator Name Role Phone Unavailable Primary Care Provider Unavailabl e Encounter Details Date Type Department Care Team (Latest Contact Info) Description 10/15/2023 12:50 PM CDT Anesthesia Event Division of Gastroenterology in [place], [place] [address] [place] [phone] Cale Chun APRN, [employer] [address] [place] [phone] Tiera Purdy M.D. [address] [place] [phone] Anesthesia Record Procedure Summary Procedure Name Responsible [...] drink = 0.6 oz pur e alcohol) [facility] Utilities Answer Date Recorded In the past 12 months has [employer], gas, oil, or water [employer] threatened to shut off services in your [...] your living situation today? I have a [facility] place to live 09/19/2023 Sex and [...] Room / Location: Division of Gastroenterology in [place], [place] Anesthesia Start: 1250 Anesthesia Stop: 1348 [...] ETT location: oral VL device: glide scope [place] scope blade size: 3 Tube size: 7 [...] Pancreas [K86.2] Location: Division of Gastroenterology in [place], [place] Pertinent components of the patient's history [...] with patient /legal guardian or through an production manufacturing worker. The use of blood products not discussed Approval to Proceed: approved for anesthesia Blessing gutierrez from [place], [place]; BMI 21; HLD; migraines; pancreatic cyst; here for EUS/ERCP; no prior [facility] intubation documentation records; MP 1; Plan GETA [...] ETT location: oral VL device: glide scope [place] scope blade size: 3 Tube size: 7 [...]
--- OUTSIDE RECORDS SUMMARY | 2024-01-17 15:25 | XMS_ITS ---
Author Organization [facility] Address [address] [place] [address] Care Team Providers Care Fish Boning Machine Feeder Name Role Phone Unavailable Unavailable Unavailable Surgery Details Not on file Complications Check Surgery Details section. Procedure Estimated Blood Loss Check Surgery Details section. Procedure Findings Check Surgery Details section. Procedure Specimens Taken Check Surgery Details section.
--- NOTE | 2024-01-17 15:30 | CRLHL7_ITS ---
For Patients: As a result of the Century Cures Act, medical imaging exams and procedure reports are released immediately into your electronic medical record. You may view this report before your referring provider. If you have questions, please contact your health care provider. DXA BONE MINERAL DENSITY STUDY Reason for exam: Osteoporosis. Current height (inches): 66 Weight (lbs.): 136 Menopause age: 55 Ethnicity: White 1. Have you had a previous hip or vertebral fracture? No. 2. Have you had any fractures during your adult life which did not result from significant trauma (e.g., auto accident)? No. 3. Did either of your parents have a hip fracture? No. 4. Do you smoke? No. 5. Have you ever taken Glucocorticoids? No. 6. Do you have rheumatoid arthritis? No. 7. Do you have secondary osteoporosis? No. 8. Do you drink 3 or more alcoholic drinks per day? No. 9. Are you being treated for osteoporosis? No. 10. Have you ever taken any of the following medications: Actonel, Evista, Fosamax, Miacalcin, Reclast, Boniva, Forteo, HRT (i.e., estrogen/hormone therapy), Protelos, Prolia, Vitamin D, Calcium, other ??? please specify. ANSWER: Yes; vitamin D, calcium. 11. Do you have any of the following medical conditions: Anorexia or bulimia, asthma or emphysema, end stage renal disease, hyperparathyroidism, any seizure disorders, cancer, inflammatory bowel diseases, hysterectomy, other ??? please specify. ANSWER: No. 12. What was your maximum height (inches)? 66. 13. Do you perform weightbearing exercise regularly? No. 14. Do you regularly consume dairy products? Yes. 15. Do you drink caffeinated beverages? Yes. 16. At what age did your period start? 12. 17. Are you premenopausal? No. 18. How many full-term pregnancies have you had? 2. 19. Have you ever missed your period for more than 6 months in a row (not including or menopause)? No. TECHNIQUE: Bone mineral density study was performed using the [employer]. FINDINGS: The results of the study expressed as bone mineral density (BMD) are as follows: Lumbar Spine L1 to L4: BMD: 0.994 g/cm2. T-score: -0.5. Z-score: 2.0. Neck Left: BMD: 0.580 g/cm2. T-score: -2.4. Z-score: -0.3. Right: BMD: 0.540 g/cm2. T-score: -2.8. Z-score: -0.7. Total Left: BMD: 0.770 g/cm2. T-score: -1.4. Z-score: 0.4. Right: BMD: 0.712 g/cm2. T-score: -1.9. Z-score: -0.1. IMPRESSION: Osteoporosis. COMPARISON: Compared with scan of 12/14/2021, the bone mineral density has decreased by 2.5% at the spine and decreased by 2.5% at the hip. *Comparison exams done prior to 12/2019 were performed on different unit, [employer]. DIEGO REYEZ M.D. Diagnostic Radiologist [email or web address] Transcribed: 3:[address]/Dictated by: Diego Reyez MD @ 01/18/2024 8:19:00 AM (Electronically Signed)
== END 2024-01-17 15:22 | disposition home or self-care (01) ==
LOC: RAD 15:23
PROVIDERS: PCP Family Medicine; Visit Provider Family Medicine
DX: M81.0 Age-related osteoporosis without current pathological fracture (principal)
CPT/HCPCS: 77080

== ENCOUNTER 2024-10-01 11:28 | Outpatient (CLI) | payer OTHER, SELFPAY ==
--- NOTE | 2024-10-01 11:30 | CRLHL7_ITS ---
For Patients: As a result of the Century Cures Act, medical imaging exams and procedure reports are released immediately into your electronic medical record. You may view this report before your referring provider. If you have questions, please contact your health care provider. BILATERAL SCREENING MAMMOGRAM WITH COMPUTER-AIDED DETECTION AND TOMOSYNTHESIS TECHNIQUE: CC and MLO views were obtained. These mammographic images have been obtained using full-field digital technique. These mammographic images were interpreted with the benefit of computer-aided detection. Breast Tomosynthesis was used in this interpretation. COMPARISON FILM: 09/04/23, 03/27/22, 10/07/20. FINDINGS: The breasts are heterogeneously dense, which may obscure small masses. IMPRESSION: There is no radiographic evidence for malignancy. ASSESSMENT: BI-RADS Category 2: Benign RECOMMENDATION: Routine screening mammogram in 1 year. A lay language report of this examination will be provided to the patient. Db Joyce M.D. Diagnostic Radiologist [email or web address] SP/Dictated by: Db Joyce MD @ 10/07/2024 11:39:00 AM (Electronically Signed)
== END 2024-10-01 11:29 | disposition home or self-care (01) ==
LOC: MAMMO 11:29
PROVIDERS: PCP Family Medicine; Visit Provider Family Medicine
DX: Z12.31 Encounter for screening mammogram for malignant neoplasm of breast (principal); R92.333 Mammographic heterogeneous density, bilateral breasts
CPT/HCPCS: 77063; 77067

== ENCOUNTER 2025-02-03 09:25 | Outpatient (CLI) | payer OTHER, SELFPAY | END 2025-02-03 09:26 | disposition home or self-care (01) | LOC: NFLDREF 02-05 14:46 | PROVIDERS: PCP Family Medicine; Referring Provider Family Medicine; Visit Provider Family Medicine | DX: E78.5 Hyperlipidemia, unspecified (principal); M81.0 Age-related osteoporosis without current pathological fracture; R53.83 Other fatigue; F32.A Depression, unspecified | CPT/HCPCS: 80053; 80061; 82306 ==

== ENCOUNTER 2025-06-30 16:39 | Outpatient (CLI) | payer OTHER, SELFPAY ==
[2025-06-30 18:31] LABS: Bacterial Vaginosis* Negative (Negative); Candida glab/krus NOT DETECTED (No Detected)
== END 2025-06-30 16:40 | disposition home or self-care (01) ==
LOC: NFLDREF 16:39
PROVIDERS: PCP Family Medicine; Visit Provider Obstetrics & Gynecology
DX: N89.8 Other specified noninflammatory disorders of vagina (principal); N39.0 Urinary tract infection, site not specified; B96.20 Unspecified Escherichia coli [E. coli] as the cause of diseases classified elsewhere
CPT/HCPCS: 81513; 87086; 87481; 87661